=== PATIENT | female | born 1970 | race Caucasian/White ===

== ENCOUNTER 2020-03-16 10:12 | Outpatient (CLI) | payer OTHER, SELFPAY ==
--- NOTE | ~2020-03-16 | US_ITS ---
EXAMINATION: US pelvic complete w TV EXAM DATE: 03/16/2020 11:15 INDICATION: Irregular bleeding. Check IUD. TECHNIQUE: Pelvic transabdominal and transvaginal sonogram was performed. There are multiple graysca le and Doppler images available for interpretation. There is no prior study for comparison. FINDINGS: Uterus measures 7.6 x 3.9 x 3.5 cm, with IUD centrally located inside the endometrial cavi ty. Endometrial stripe measures 3 mm, within normal limits. There is no free pelvic fluid. Right adnexa: The ovary measures 9.8 x 8.3 x 5.1 cm, with large cystic region measuring up to 8.3 cm, some faint echogenic foci inside the fluid. No evidence of intramural nodule or focal wall thickenin g, more likely benign histology. Ovarian vascular flow confirmed. Left adnexa: The ovary measures 4.5 x 2.7 x 4.1 cm and is morphologically normal. Ovarian vascular fl ow confirmed. IMPRESSION: 1. Large cystic right ovarian lesion, could be hemorrhagic cyst, endometrioma, cystic ovarian neoplas m. 2. IUD in position. Reviewed, dictated and finalized at location A. IMPRESSION: 1. Large cystic right ovarian lesion, could be hemorrhagic cyst, endometrioma, cystic ovarian neoplasm. 2. IUD in position.
[2020-03-16 11:03] LABS: Thyroid Stimulating Hormone 1.54 uIU/mL (0.36-3.74)
[2020-03-18 17:28] LABS: T4 Thyroxine 9.2 mcg/dL (5.1-11.9)
[2020-03-20 09:28] LABS: FSH 7.2 mIU/mL (***); LH 2.5 mIU/mL (***); Progesterone 0.9 ng/mL (***)
== END 2020-03-16 10:13 | disposition home or self-care (01) ==
PROVIDERS: PCP Family Medicine; Visit Provider Obstetrics & Gynecology
DX: N92.6 Irregular menstruation, unspecified (principal)
CPT/HCPCS: 36415; 76830; 76856; 83001; 83002; 84144; 84436; 84443

== ENCOUNTER → 2020-04-28 08:31 | Outpatient (CLI) | payer OTHER, SELFPAY ==
--- NOTE | ~2020-04-28 | US_ITS ---
EXAMINATION: US pelvic complete w TV DATE: 04/28/2020 10:00 INDICATION: Pelvic pain. Ovarian cyst. Comparison:03/16/2020 TECHNIQUE: Multiple transabdominal and endovaginal sonographic images of the pelvis performed. FINDINGS: The uterus measures 7.7 x 3.2 x 4.6 cm. The endometrial complex measures 3 mm. IUD present in the endometrium. The right ovary measures 9.5 x 5.8 x 7.3 cm and the left ovary measures 3.4 x 2.6 x 3.1 cm. There is a persistent large right ovarian cyst measuring 8.3 x 5.4 x 6.2 cm with low level internal echoes. Th e left ovary contains a 2.4 cm cyst. There is no free fluid in the pelvis. There are no abnormal masses seen on either side. IMPRESSION: 1. Persistent 8.3 cm right ovarian cyst. Differential diagnosis includes large functional cyst, cysta denoma and cystadenocarcinoma. 2: 2.4 cm left ovarian cyst. Reviewed, dictated and finalized at location A. IMPRESSION: 1. Persistent 8.3 cm right ovarian cyst. Differential diagnosis includes large functional cyst, cystadenoma and cystadenocarcinoma. 2: 2.4 cm left ovarian cyst.
== END ==
PROVIDERS: Visit Provider Obstetrics & Gynecology
DX: N83.202 Unspecified ovarian cyst, left side (principal); N83.201 Unspecified ovarian cyst, right side
CPT/HCPCS: 76830; 76856

== ENCOUNTER 2020-05-09 02:32 | Outpatient (CLI) | payer OTHER, SELFPAY ==
[2020-05-09 16:34] LABS: SARS-CoV-2 RNA PCR Negative
== END 2020-05-09 02:33 | disposition home or self-care (01) ==
LOC: ANHCOVIDDT 02:32
PROVIDERS: Visit Provider Obstetrics & Gynecology
DX: Z01.812 Encounter for preprocedural laboratory examination (principal); Z11.59 Encounter for screening for other viral diseases
CPT/HCPCS: 87635; C9803; U0003

== ENCOUNTER 2020-05-11 00:35 | Day surgery (SDC) | payer OTHER, SELFPAY ==
[2020-05-04 11:54] VITALS: BMI 29.8
[2020-05-11] VITALS (10 sets, daily range): BP systolic 120–150; BP diastolic 70–95; PULSE 58–80; RESP 12–20; TEMP 36–36.6; O2SAT 99–100
--- NOTE | 2020-05-11 06:47 | PM.IMHP ---
H&P: HPI History of Present Illness Date/Time: 05/11/20 06:47 Chief complaint: ovarian cyst Narrative: Analy Cruz is a 50 year old female presented in February with irregular bleeding. On exam an adnexal fullness was palpated on the right. Ultrasound showed an 8cm right ovarian cyst. She had a normal Ca125. She did not have pain at that time. She opted for trial of control pills and reevaluate. She had a follow up ultrasound approximately six weeks later and no change in cyst. She has started having a right lowre quadrant sharpness intermittent and sometimes achy. She was recommended for removal of cyst by laparoscopy since no change with ovarian suppression and she is having discomfort now. Also discussed with her option of removal of both fallopian tubes as a sterilization procedure that can decrease her risk of ovarian cancer. She was informed that the tubal interruption as a sterilization technique did not show same benefit as bilateral salpingectomy for possible decrease risk of ovarian cancer. She was undecided regarding salpingectomy at her preop and told me today that she desired the salpingectomy.She has satisifed parity. Review of Systems Review of Systems: All systems reviewed & are unremarkable except as noted in HPI and below Cardiovascular: Cardiovascular: Reports no additional cardiovascular complaints, Denies chest pain and Denies dyspnea Respiratory: Respiratory: Reports no additional respiratory complaints and Denies dyspnea Gastrointestinal: Gastrointestinal: Reports abdominal pain, Denies change in bowel habits, Denies diarrhea, Denies nausea and Denies vomiting Genitourinary: Genitourinary: Reports pelvic pain Integumentary/Breasts: Skin/Breast: Reports system reviewed and no additional complaints, except as docu Neurologic: Reports system reviewed and no additional complaints, except as documented [facility] Past Medical History Medical History (Updated 05/11/20 @ 07:37 by Kurt Rizvi MD) Hx of migraines Irregular heart beat Surgical History Surgical History History of delivery History of knee surgery Family History Family History Father Hypertension Grandparent Heart attack Other Carcinoma of colon Social History Social History Years smoked: 15 Smoking status: Current some day smoker Tobacco type: cigarettes Alcohol intake: current Drinks per week: 10 Spiritual care concerns: No Meds Home Medications and Allergies Home Medications Medication Instructions Recorded Confirmed Type flecainide 50 mg tablet 75 mg PO Q12H 03/16/20 05/11/20 History drospirenone (contraceptive) 4 mg 4 mg PO DAILY 90 Days #90 day 03/22/20 05/11/20 Rx (28) tablet ibuprofen 600 mg PO QID PRN 05/04/20 05/11/20 History levonorgestrel [Mirena] 1 device INTRAUTERINE ONCE 05/04/20 05/11/20 History Allergies Allergy/AdvReac Type Severity Reaction Status Date / Time codeine Allergy Unknown Rash Verified 05/11/20 06:42 hydrocodone AdvReac Nausea Verified 05/11/20 06:42 morphine AdvReac SEVERE Verified 05/11/20 06:42 VOMITING Exam Const: Orientation/consciousness: oriented to person and oriented to place HENMT: Head: normal to inspection Eyes: General: appearance normal, both eyes and all related structures Resp: Effort & Inspection: normal respiratory effort Auscultation: clear to auscultation bilaterally Cardio: Rate: regular rate Rhythm: regular rhythm GI: Inspection: normal to inspection GI Palp: No Rebound tenderness present : External Female Exam: normal external appearance Speculum Exam - Vagina: normal appearance of the vagina Speculum Exam - Cervix: normal appearance of the cervix and Other cervical findings present (IUD string present) Bimanual exam- vagina & uterus:
[2020-05-11] MEDS: LACTATED RINGERS 1,000 ML 30 ML IV CONT ×2 (06:49→09:14)
[2020-05-11] MEDS: KETOROLAC 15 MG/ML VIAL (*BKC) IV PUSH (06:50)
[2020-05-11] MEDS: ACETAMINOPHEN 500 MG TABLET 1000 MG PO (06:50)
--- NOTE | 2020-05-11 07:00 | WPDANESEPPF ---
Anes - Initial Pre Proc Eval Procedure: Operation Date: 05/11/20 07:30 Proposed Procedures p Laparoscopic Right Ovarian Cystectomy, Possible Right Oophorectomy - Kurt Rizvi MD Date/Time: 05/11/20 07:00 Surgeon: Kurt Rizvi MD Pre Op Diagnosis: ovarian cyst Patient Data Age: 50 Gender: F Height: 5 ft 6 in Weight: 83.91 kg Allergies Allergy/AdvReac Type Severity Reaction Status Date / Time codeine Allergy Unknown Rash Verified 05/11/20 06:42 hydrocodone AdvReac Nausea Verified 05/11/20 06:42 morphine AdvReac SEVERE Verified 05/11/20 06:42 VOMITING Home Medications Medication Instructions Recorded Confirmed Type flecainide 50 mg tablet 75 mg PO Q12H 03/16/20 05/11/20 History drospirenone (contraceptive) 4 mg 4 mg PO DAILY 90 Days #90 day 03/22/20 05/11/20 Rx (28) tablet ibuprofen 600 mg PO QID PRN 05/04/20 05/11/20 History levonorgestrel [Mirena] 1 device INTRAUTERINE ONCE 05/04/20 05/11/20 History Patient hx anesthesia problems: other (motion sickness) Family hx anesthesia problems: none PMFSH Past Medical History Medical History (Updated 05/11/20 @ 07:00 by Soham Mena MD) Hx of migraines Irregular heart beat Surgical History Surgical History History of delivery History of knee surgery Family History Family History Father Hypertension Grandparent Heart attack Other Carcinoma of colon Social History Social History Years smoked: 15 Smoking status: Current some day smoker Tobacco type: cigarettes Alcohol intake: current Drinks per week: 10 Spiritual care concerns: No Anes - Eval Final PreProcedure Day of Procedure 05/11/20 07:00 Patient weight: overweight Heart: regular rate and rhythm Lungs: decreased breath sounds Airway: Mallampati scale class II Neurological: alert and oriented Last oral intake: >/= 8 hours ASA classification: III Emergent: no Anesthetic plan: proceed Anesthesia type and monitoring: general ETT and standard monitoring Informed Consent: The patient's anesthetic plan and its attendant risks and benefits were discussed with the patient/family/POA. Questions were solicited and answers provided to the satisfaction of the patient/family/POA.
--- NOTE | 2020-05-11 07:39 | WPDHPUPDATE1 ---
History and Physical Update Update Date/Time: 05/11/20 07:39 History and Physical has been reviewed, including an updated exam of the patient. There are NO changes in the patient's condition. Risks, benefits, and alternatives have been discussed and questions answered. Patient agrees to proceed with procedure.
--- NOTE | 2020-05-11 09:01 | PM.PROC ---
Procedure Note - Detailed Date of procedure: 05/12/20 Pre-op diagnosis: ovarian cyst Undesired fertility satisfied parity Procedure performed: 1. Laparoscopic right cystectomy with right oophorectomy 2. Bilateral salpingectomy 3. Lysis of adhesions Description of procedure: After informed consent was obtained. Patient was taken to OR. General endotracheal anesthesia was performed. She was prepped and draped in sterile fashion. The bladder was drained with straight catheter while prepping. 200cc of urine drained. Attention was turned to vagina. Speculum inserted. Single tooth tenaculum placed on anterior lip of cervix. A small uterine manipulator was placed in cervical canal. Attention was then turned to abdomen with sterile gloves. A vertical incision was made near umbilical fold. A Veress needle was inserted. Confirmation into the abdomen obtained with normal flow of sterile saline and normal peritoneal pressures. A pneumoperitoneum of 15mmHg was obtained. A 5mm port was inserted under laparoscopic visualization. She was placed in Trendelenburg position. A second 5 mm port inserted on the right and a right port 10mm inserted under laparoscopic visualization. Large band of omental adhesions was lysed with scissors and cautery to obtain better visualization of pelvic floor. Hemostasis noted. Another 5mm port needed to be inserted in the lower mid abdomen. A needle with suction was placed into the right ovarian cyst after the cyst was lifted from the pelvis and placed in the endocatch bag. It could fit longterm in. The needle suction was placed and the cyst was decompressed. After if was mostly decompress the cyst was evaluated and no normal ovarian tissue identified. The fallopian tube was then cauterized from the broad ligament and the ovarian ligament was cauterized and the ovary and tube were placed in the endocath bag. The enclosed specimen could not fit through the port site. The incision was extended and the specimen was grasped with clamp and removed partially from the bag. More fluid was expressed, in the bag from the cyst and the bag and the rest of the specimen was removed through the port. The 10mm port was reinserted under laparoscopic visualization. Attention was turned to the left fallopian tube and their was a small cyst on the left ovary which the fluid was drained and it was fully decompressed and hemostatic. There was normal ovarian tissue identified. The left fallopian tube that was free was excised with ligature from the broad ligament. The proximal tube was densely adhere to the left pelvic sidewall and this was not removed. A Dax Thomasen was inserted into the 10mm port site and the fascia was approximated well. Hemostasis in pelvis was noted. The incisions were closed with 4.o vicryl in subcutaneous fashion and dermabond. Marcaine was injected at incision site before each incision was made and at closing, a total of 10cc. The manipulator removed. IUD string seen. Patient tolerated procedure well and was taken to recovery room. Sponge count correct. Anesthesia: GETA Surgeon: Kurt Rizvi MD Estimated blood loss (mL): 5 IV fluids (mL): 1,400 Urine output (mL): 200 Drains: No Packing: No Pathology: yes (1. right ovary with cyst 2. right cyst fluid 3. Right and left fallopian tube) Complications: No immediate complications Condition: stable Disposition: PACU Findings: Large right ovarian cyst consisting of all of the ovary. No normal ovarian tissue seen. Small left ovarian cyst. Cyst fluid removed from left ovary. Normal fallopian tubes bilaterally. Adhesions of omental fat to anterior abdominal wall. The adhesions were lysed to obtain visualization of pelvis. adhesions of bladder and left proximal fallopian tube and broad ligament to pelvis.
--- NOTE | 2020-05-11 09:36 | SUR.PHASEI ---
0935; PT AROUSES EASILY. DENIES PAIN OR NAUSEA AT THIS TIME. C/O SORE THROAT. HOB ELEVATED 20 DEGREES.
[2020-05-11] MEDS: fentaNYL CITRATE INJ (*CRX) 100 MCG/2 ML VIAL 25 MCG IV PUSH ×4 (09:54→10:18)
== END 2020-05-11 11:55 | disposition home or self-care (01) ==
PROVIDERS: PCP Family Medicine; Visit Provider Obstetrics & Gynecology
PROC: (CPT 49320; principal; 2020-05-11 07:30)
DX: D27.0 Benign neoplasm of right ovary (principal); N83.8 Other noninflammatory disorders of ovary, fallopian tube and broad ligament; Z30.2 Encounter for sterilization; I47.2 Ventricular tachycardia; F17.210 Nicotine dependence, cigarettes, uncomplicated
CPT/HCPCS: 58661; 88104; 88108; 88302; 88305; 88307; A9270; J0330; J1100; J1885; J2250; J2405; J2704; J2710; J3010; J7030; J7120

== ENCOUNTER 2020-07-28 17:26 | Outpatient (CLI) | payer OTHER, SELFPAY ==
--- NOTE | ~2020-07-28 | MM_ITS ---
EXAMINATION: MM screening [facility] BI w hany HISTORY: Screening TECHNIQUE: Craniocaudal and mediolateral oblique 3-D tomosynthesis images were obtained and synthetic 2-D images were generated. CAD analysis was submitted and interpreted. COMPARISON: Comparison to multiple prior studies sequentially, with oldest reviewed study dated 10/08. BREAST PARENCHYMAL COMPOSITION: There are scattered areas of fibroglandular density. FINDINGS: There is no evidence of suspicious mass, calcification, or architectural distortion to sugg est malignancy in either breast. There has been no suspicious interval change. IMPRESSION: 1. No mammographic evidence of malignancy. 2. Recommend routine screening mammography in one year. BI-RADS Category 1: Negative Reviewed, dictated and finalized at location A. REP
== END 2020-07-28 17:27 | disposition home or self-care (01) ==
LOC: ANHIMG 17:30
PROVIDERS: PCP Family Medicine; Visit Provider Obstetrics & Gynecology
DX: Z12.31 Encounter for screening mammogram for malignant neoplasm of breast (principal)
CPT/HCPCS: 77063; 77067

== ENCOUNTER 2020-08-21 08:02 | Outpatient (CLI) | payer OTHER, SELFPAY ==
--- NOTE | ~2020-08-21 | US_ITS ---
EXAMINATION: US pelvic complete w TV DATE: 08/21/2020 09:36 INDICATION: Right oophorectomy. Irregular menstruation. Comparison:Ultrasound dated 04/28/2010 TECHNIQUE: Multiple transabdominal and endovaginal sonographic images of the pelvis performed. FINDINGS: The uterus measures 8 x 3.8 x 4.6 cm. IUD is present in the fundus. The endometrial complex measures 4.6 mm. The right ovary is surgically absent. There is a 2.2 cm left ovarian cyst. There are small follicles in each ovary. There is no free fluid in the pelvis. There are no abnormal masses seen on either side. IMPRESSION: 1. 2.2 cm left ovarian cyst. Reviewed, dictated and finalized at location A. ECT MANAGEMENT IT SPECIALIST
== END 2020-08-21 08:03 | disposition home or self-care (01) ==
PROVIDERS: PCP Family Medicine; Visit Provider Obstetrics & Gynecology
DX: N83.202 Unspecified ovarian cyst, left side (principal); Z97.5 Presence of (intrauterine) contraceptive device
CPT/HCPCS: 76830; 76856

== ENCOUNTER → 2020-10-06 08:43 | Outpatient (CLI) | payer OTHER, SELFPAY ==
[2020-10-06 20:13] LABS: SARS-CoV-2 RNA PCR Negative
== END ==
PROVIDERS: PCP Family Medicine; Visit Provider Family Medicine
DX: R51.9 Headache, unspecified (principal); Z20.822 Contact with and (suspected) exposure to COVID-19
CPT/HCPCS: C9803; U0003; U0005

== ENCOUNTER 2020-10-26 10:07 | Outpatient (CLI) | payer OTHER, SELFPAY ==
--- NOTE | 2020-10-26 | ECG_ITS ---
Measurements Intervals [place] Rate: 81 P: 17 NV: 155 QRS: -7 QRSD: 95 T: 32 QT: 378 QTc: 440 Interpretive Statements SINUS RHYTHM INCOMPLETE RIGHT BUNDLE BRANCH BLOCK BORDERLINE ECG Electronically Signed On 10-26-2020 11:36:59 COMMUNITY OUTREACH ADVOCATE by Shemar Suh D.O.
== END 2020-10-26 10:08 | disposition home or self-care (01) ==
PROVIDERS: PCP Family Medicine
DX: I47.2 Ventricular tachycardia (principal); I45.10 Unspecified right bundle-branch block
CPT/HCPCS: 93005

== ENCOUNTER 2021-06-22 12:11 | Outpatient (CLI) | payer OTHER, SELFPAY ==
[2021-06-22 13:18] LABS: T4 Thyroxine 8.34 ug/dL (5.53-11.0)
[2021-06-25 07:28] LABS: FSH 20.4 mIU/mL (***); Progesterone 0.4 ng/mL (***)
== END 2021-06-22 12:12 | disposition home or self-care (01) ==
LOC: ANHLAB 12:14
PROVIDERS: PCP Family Medicine; Visit Provider Obstetrics & Gynecology
DX: N92.6 Irregular menstruation, unspecified (principal)
CPT/HCPCS: 36415; 83001; 84144; 84436; 84443

== ENCOUNTER → 2021-06-28 13:04 | Outpatient (CLI) | payer OTHER, SELFPAY ==
--- NOTE | ~2021-06-28 | US_ITS ---
EXAMINATION: US pelvic complete w TV DATE: 06/28/2021 13:34 INDICATION: Irregular menstruation Comparison:No prior studies for comparison. TECHNIQUE: Multiple transabdominal and endovaginal sonographic images of the pelvis performed. FINDINGS: The uterus measures 8.2 x 3.7 x 4.3 cm. There is an IUD in the endometrium. The endometrial complex measures 5 mm. The right ovary is surgically absent. The left ovary contains a 3.4 cm cyst and measures 5.8 x 2.8 x 4 cm. There is no free fluid in the pelvis. There are no abnormal masses seen on either side. IMPRESSION: 1. Left ovarian cyst measuring 3.4 cm maximum dimension. Reviewed, dictated and finalized at location A. T MANAGEMENT ANALYST
== END ==
PROVIDERS: Visit Provider Obstetrics & Gynecology
DX: N92.6 Irregular menstruation, unspecified (principal); N83.202 Unspecified ovarian cyst, left side
CPT/HCPCS: 76830; 76856

== ENCOUNTER 2021-09-11 00:49 | Day surgery (SDC) | payer OTHER, SELFPAY ==
[2021-08-30 11:58] VITALS: BMI 25.9
[2021-09-11 08:00] VITALS: BP 128/88; PULSE 71; RESP 16; TEMP 36.3; O2SAT 99; BMI 26.2
--- NOTE | 2021-09-11 08:14 | WPDANESEPPF ---
Anes - Initial Pre Proc Eval Procedure: Operation Date: 09/11/21 09:00 Proposed Procedures p Screening Colonoscopy - Donal Estrella MD Date/Time: 09/11/21 08:14 Surgeon: Donal Estrella MD Pre Op Diagnosis: neoplasm screening Patient Data Age: 51 Gender: F Height: 1.68 m Weight: 73 kg Allergies Allergy/AdvReac Type Severity Reaction Status Date / Time codeine Allergy Unknown Rash Verified 09/11/21 08:10 hydrocodone AdvReac Nausea Verified 09/11/21 08:10 morphine AdvReac SEVERE Verified 09/11/21 08:10 VOMITING Home Medications Medication Instructions Recorded Confirmed Type ibuprofen 600 mg PO QID PRN 05/04/20 09/11/21 History levonorgestrel [Mirena] 1 device INTRAUTERINE ONCE 05/04/20 09/11/21 History ergocalciferol (vitamin D2) 1,250 mcg PO WEEKLY 08/30/21 09/11/21 History flecainide 150 mg PO Q12H 08/30/21 09/11/21 History Patient hx anesthesia problems: none Family hx anesthesia problems: none Results Review: All pre-operative results and documents have been reviewed as part of the pre-operative evaluation. [facility] Past Medical History Medical History (Updated 09/11/21 @ 08:14 by Freddy Moffett MD) Hx of migraines Irregular heart beat Overweight Surgical History Surgical History History of bilateral salpingectomy History of delivery History of knee surgery History of oophorectomy Family History Family History Father Hypertension Grandparent Heart attack Other Carcinoma of colon Social History Social History Years smoked: 15 Smoking status: Current every day smoker Tobacco type: cigarettes Alcohol intake: current Drinks per week: 10 Alcohol use details: 2-3 drinks per month Living arrangements: with family Spiritual care concerns: No Anes - Eval Final PreProcedure Day of Procedure 09/11/21 08:14 Patient weight: overweight Heart: regular rate and rhythm Lungs: clear to auscultation Airway: Mallampati scale class II Neurological: alert and oriented Last oral intake: >/= 8 hours ASA classification: III Emergent: no Anesthetic plan: proceed Anesthesia type and monitoring: general GIVS and standard monitoring Results Review: All pre-operative results and documents have been reviewed as part of the pre-operative evaluation. Informed Consent: The patient's anesthetic plan and its attendant risks and benefits were discussed with the patient/family/POA. Questions were solicited and answers provided to the satisfaction of the patient/family/POA.
[2021-09-11] MEDS: LACTATED RINGERS 1,000 ML 150 ML IV CONT (08:22)
--- NOTE | 2021-09-11 08:35 | PM.HPGS ---
History of Present Illness History of Present Illness Consent: Risks, benefits, and alternatives have been discussed and questions answered. Patient agrees to proceed with procedure. Chief complaint: neoplasm screening Narrative: Analy Cruz is a 51 year old female here for first screening colonoscopy Review of Systems Constitutional: Constitutional: Denies headache(s) and Denies weakness Eyes: Eyes: Denies blurry vision ENT: Reports Normal hearing present, Denies headache(s) and Denies neck pain Cardiovascular: Cardiovascular: Denies chest pain and Denies dyspnea Respiratory: Respiratory: Denies dyspnea Gastrointestinal: Gastrointestinal: Reports no additional gastrointestinal complaints Genitourinary: Genitourinary: Denies dysuria Musculoskeletal: Musculoskeletal: Denies neck pain Integumentary/Breasts: Skin/Breast: Denies dry skin Neurologic: Reports Normal hearing present, Denies headache(s) and Denies weakness Psychiatric: Psychiatric: Denies anxiety Endocrine: Endocrine: Denies change in body appearance Hematologic/Lymphatic: Hematologic/Lymphatic: Denies easy bleeding Allergic/Immunologic: Allergic/Immunologic: Denies urticaria PMFSH Past Medical History Medical History (Updated 09/11/21 @ 08:36 by Donal Estrella MD) Colon cancer screening Hx of migraines Irregular heart beat Overweight Surgical History Surgical History History of bilateral salpingectomy History of delivery History of knee surgery History of oophorectomy Family History Family History Father Hypertension Grandparent Heart attack Other Carcinoma of colon Social History Social History Years smoked: 15 Smoking status: Current every day smoker Tobacco type: cigarettes Alcohol intake: current Drinks per week: 10 Alcohol use details: 2-3 drinks per month Living arrangements: with family Spiritual care concerns: No Meds Home Medications and Allergies Home Medications Medication Instructions Recorded Confirmed Type ibuprofen 600 mg PO QID PRN 05/04/20 09/11/21 History levonorgestrel [Mirena] 1 device INTRAUTERINE ONCE 05/04/20 09/11/21 History ergocalciferol (vitamin D2) 1,250 mcg PO WEEKLY 08/30/21 09/11/21 History flecainide 150 mg PO Q12H 08/30/21 09/11/21 History Allergies Allergy/AdvReac Type Severity Reaction Status Date / Time codeine Allergy Unknown Rash Verified 09/11/21 08:10 hydrocodone AdvReac Nausea Verified 09/11/21 08:10 morphine AdvReac SEVERE Verified 09/11/21 08:10 VOMITING Vital Signs Vital Signs - 24 hr 09/11/21 08:00 Temperature 97.4 F L Pulse Rate 71 Respiratory Rate 16 Blood Pressure 128/88 Pulse Oximetry 99 Exam Const: General: comfortable and no acute distress HENMT: General nose exam: Normal nares present Eyes: General: appearance normal, both eyes and all related structures Neck: Neck: no JVD Resp: Auscultation: clear to auscultation bilaterally Cardio: Rate: regular rate Rhythm: regular rhythm GI: Inspection: non-distended GI Palp: Yes Soft to palpation Skin: General skin exam: normal color Neuro: General: gait normal Speech: normal speech Extrem: General: normal to inspection Psych: Mental Status: mental status grossly normal Assessment and Plan Assessment and plan (1) Colon cancer screening: Code(s): Z12.11 - Encounter for screening for malignant neoplasm of colon Status: Acute Assessment and Plan: colonoscopy
[2021-09-11 08:56] VITALS: BP 117/85; PULSE 65; RESP 22; O2SAT 100
[2021-09-11 09:06] VITALS: BP 138/83; PULSE 66; RESP 24; O2SAT 100
[2021-09-11 09:16] VITALS: BP 132/78; PULSE 68; RESP 20; O2SAT 100
== END 2021-09-11 09:36 | disposition home or self-care (01) ==
PROVIDERS: PCP Family Medicine; Visit Provider Internal Medicine Gastroenterology
PROC: 0DJD8ZZ Inspection of Lower Intestinal Tract, Via Natural or Artificial Opening Endoscopic (ICD-10-PCS; CPT 45378; principal; 2021-09-11 09:00)
DX: Z12.11 Encounter for screening for malignant neoplasm of colon (principal); K64.8 Other hemorrhoids; Z87.891 Personal history of nicotine dependence
CPT/HCPCS: 45378; J2704; J7120

== ENCOUNTER 2021-09-13 16:20 | Outpatient (CLI) | payer OTHER, SELFPAY ==
--- NOTE | ~2021-09-13 | MM_ITS ---
EXAMINATION: MM screening [facility] BI w hany HISTORY: Screening mammogram TECHNIQUE: Craniocaudal and mediolateral oblique 3-D tomosynthesis images were obtained and synthetic 2-D images were generated. CAD analysis was submitted and interpreted. COMPARISON: 07/28/2020, 04/22/2019, 09/05/2017 BREAST PARENCHYMAL COMPOSITION: There are scattered areas of fibroglandular density. FINDINGS: There is no evidence of suspicious mass, calcification, or architectural distortion to sugg est malignancy in either breast. There has been no suspicious interval change. IMPRESSION: 1. No mammographic evidence of malignancy. 2. Recommend routine screening mammography in one year. BI-RADS Category 1: Negative Reviewed, dictated and finalized at location A. VERY RN
== END 2021-09-13 16:21 | disposition home or self-care (01) ==
LOC: ANHIMG 16:21
PROVIDERS: PCP Family Medicine; Visit Provider Obstetrics & Gynecology
DX: Z12.31 Encounter for screening mammogram for malignant neoplasm of breast (principal)
CPT/HCPCS: 77063; 77067

== ENCOUNTER 2022-08-09 08:32 | Outpatient (CLI) | payer OTHER, SELFPAY ==
[2022-08-14 20:28] LABS: FSH 33.5 mIU/mL (***); LH 43.6 mIU/mL (***); Progesterone 0.7 ng/mL (***)
== END 2022-08-09 08:33 | disposition home or self-care (01) ==
PROVIDERS: PCP Family Medicine; Visit Provider Obstetrics & Gynecology
DX: N92.6 Irregular menstruation, unspecified (principal)
CPT/HCPCS: 36415; 83001; 83002; 84144; 84436; 84443

== ENCOUNTER 2022-08-15 10:47 | Outpatient (CLI) | payer OTHER, SELFPAY ==
--- NOTE | ~2022-08-15 | US_ITS ---
Pelvic ultrasound. Clinical History: Intrauterine device Technique: Realtime transabdominal and transvaginal scanning of the pelvis was performed. Color flow Doppler and Doppler spectral analysis were performed. Findings: The uterus is anteverted. The endometrial stripe has a thickness of 2-3 mm. IUD in satisfa ctory position. No focal mass is identified. The right ovary is not visualized. No significant right ovarian or adnexal mass is seen. The left ovary measures 4.6 x 2.2 x 2.0 cm. Mildly complex left ovarian cyst measures 3 cm in maximum diameter. There is no evidence of free fluid in the cul de sac. Impression: IUD in satisfactory position. 3 cm mildly complex ovarian cyst. Consider follow-up ultrasound in 6-8 weeks to reassess. Reviewed, dictated and finalized at [facility]. ET SALES SUPERVISOR Impression: IUD in satisfactory position. 3 cm mildly complex ovarian cyst. Consider follow-up ultrasound in 6-8 weeks to reassess.
== END 2022-08-15 10:48 | disposition home or self-care (01) ==
PROVIDERS: PCP Family Medicine; Visit Provider Obstetrics & Gynecology
DX: Z30.431 Encounter for routine checking of intrauterine contraceptive device (principal); N83.202 Unspecified ovarian cyst, left side
CPT/HCPCS: 76830; 76856

== ENCOUNTER 2022-10-03 15:22 | Outpatient (CLI) | payer OTHER, SELFPAY ==
--- NOTE | ~2022-10-03 | US_ITS ---
EXAMINATION: US pelvic complete w TV DATE: 10/03/2022 16:03 INDICATION: Left ovarian cyst. TECHNIQUE: Multiple transabdominal and transvaginal sonographic images of the pelvis were obtained. COMPARISON: Ultrasound 08/15/2022 FINDINGS: TRANSABDOMINAL ULTRASOUND: The uterus measures 6.7 x 4.5 x 3.2 cm. There is no free fluid in the pelvis. TRANSVAGINAL ULTRASOUND: The endometrial complex measures 2 mm in thickness. There is an intrauterine device in expected posit ion. There are nabothian cysts in the cervix. The right ovary is not visualized and reportedly absent . The left ovary measures 2.5 x 1.2 x 2.0 cm. There is normal vascular flow in left ovary. IMPRESSION: 1. Normal left ovary. Right ovary reportedly absent. 2. Intrauterine device in expected position. Reviewed, dictated and finalized at location A. E MAKER
== END 2022-10-03 15:23 | disposition home or self-care (01) ==
LOC: ANHIMG 15:25
PROVIDERS: PCP Family Medicine; Visit Provider Obstetrics & Gynecology
DX: N83.209 Unspecified ovarian cyst, unspecified side (principal); Z97.5 Presence of (intrauterine) contraceptive device
CPT/HCPCS: 76830; 76856

== ENCOUNTER 2022-10-12 09:33 | Outpatient (CLI) | payer OTHER, SELFPAY ==
--- NOTE | ~2022-10-12 | US_ITS ---
EXAMINATION: US venous doppler LE RT DATE: 10/12/2022 10:12 INDICATION: Right lower limb pain. Varicose veins. TECHNIQUE: Grayscale ultrasound images without and with compression and Doppler ultrasound images of the right lower extremity veins were obtained. COMPARISON: None. FINDINGS: The visualized portions of right common femoral vein, profunda (deep) femoral vein, femoral vein, pop liteal vein, peroneal trunk, posterior tibial veins, peroneal veins, gastrocnemius vein and greater s aphenous vein outflow are patent. IMPRESSION: 1. No deep venous thrombosis in the right lower limb. Reviewed, dictated and finalized at location A. IGHT EDGER
== END 2022-10-12 09:34 | disposition home or self-care (01) ==
LOC: ANHIMG 09:34
PROVIDERS: PCP Family Medicine; Visit Provider Family Medicine
DX: M79.661 Pain in right lower leg (principal)
CPT/HCPCS: 93971

== ENCOUNTER 2022-10-22 09:21 | Outpatient (CLI) | payer OTHER, SELFPAY ==
--- NOTE | ~2022-10-22 | XR_ITS ---
EXAMINATION: XR_KNEE1-2VRT_CR DATE: 10/22/2022 10:53 INDICATION: Multiple joint pain TECHNIQUE: AP and lateral views of the right knee were obtained. COMPARISON: None. FINDINGS: Alignment is normal. No fracture. Subarticular cystic change suggesting overlying high-grade chondrom alacia at the cephalad aspect of the patellar apical ridge. Joint spaces appear normal and the medial and lateral compartments. Soft tissues are unremarkable with no right knee joint effusion. IMPRESSION: 1. 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 Reviewed, dictated and finalized at location A. SSING MACHINE OPERATOR IMPRESSION: 1. Mild patellofemoral osteoarthritis with subarticular cystic change suggestin g high-grade chondromalacia at the patellar apical ridge.
--- NOTE | ~2022-10-22 | XR_ITS ---
EXAMINATION: XR hand RT 2V, XR wrist LT 2V, XR hand LT 2V, XR wrist RT 2V DATE: 10/22/2022 10:52 INDICATION: Multiple joint pain TECHNIQUE: 1. Posteroanterior and lateral views of the left wrist were obtained. 2. Dorsal palmar and lateral views of the left hand were obtained. 3. Posteroanterior and lateral views of the right wrist were obtained. 4. Dorsal palmar and lateral views of the right hand were obtained. COMPARISON: None. FINDINGS: No fractures at either hand or wrist. Normal alignment at the left hand and wrist. There is widening of the right scapholunate interval with increased scapholunate angle consistent with scapholunate lig ament tear and secondary dorsal intercalated segment instability (DISI). 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 Additional more typical symmetric pattern of minimal to mild polyarticu lar osteoarthritis at the bilateral radiocarpal, triscaphe, first carpometacarpal and multiple metaca rpophalangeal and interphalangeal joints characterized by nonuniform joint space narrowing and/or tin y marginal osteophytes. No erosions to suggest inflammatory arthritis. There is mild periarticular os teoarthritis about the first interphalangeal and multiple bilateral proximal interphalangeal joints. Additional mild soft tissue swelling overlying the ulnar styloid processes. IMPRESSION: 1. 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 2. Additional relatively symmetric typical pattern of minimal to mild polyarticular osteoarthritis at the bilateral hands and wrists. No erosions to suggest inflammatory arthritis. Reviewed, dictated and finalized at location A. DOWN SPECIALIST IMPRESSION: 1. 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 2. Additional relatively symmetric typical pattern of minimal to mild polyartic ular osteoarthritis at the bilateral hands and wrists. No erosions to suggest i nflammatory arthritis. IMPRESSION: 1. 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 2. Additional relatively symmetric typical pattern of minimal to mild polyartic ular osteoarthritis at the bilateral hands and wrists. No erosions to suggest i nflammatory arthritis. IMPRESSION: 1. 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 2. Additional relatively symmetric typical pattern of minimal to mild polyartic ular osteoarthritis at the bilateral hands and wrists. No erosions to suggest i nflammatory arthritis.
--- NOTE | ~2022-10-22 | XR_ITS ---
EXAMINATION: XR shoulder LT min 2V, XR shoulder RT min 2V DATE: 10/22/2022 10:53 INDICATION: Multiple joint pain TECHNIQUE: 1. AP internally and AP oblique externally rotated views of the right shoulder were obtained. 2. AP internally and AP oblique externally rotated views of the left shoulder were obtained. COMPARISON: None FINDINGS: Normal alignment at both shoulders. No fracture. Glenohumeral joint spaces are normal. Relatively sy mmetric mild bilateral acromioclavicular osteoarthritis. Calcified nodule left upper lung zone and ca lcified left hilar and mediastinal lymph nodes consistent with old granulomatous disease. Soft tissue s are unremarkable. IMPRESSION: Mild bilateral acromioclavicular osteoarthritis. Reviewed, dictated and finalized at location A. ICAL PATHOLOGIST IMPRESSION: Mild bilateral acromioclavicular osteoarthritis.
--- NOTE | ~2022-10-22 | XR_ITS ---
EXAMINATION: XR elbow RT 2V DATE: 10/22/2022 10:53 INDICATION: Multiple joint pain TECHNIQUE: Anteroposterior and lateral views of the right elbow were obtained. COMPARISON: None. FINDINGS: Alignment is normal. No fracture or joint effusion. Mild osteoarthritis most prominent at the ulnotro chlear articulation. Soft tissues are unremarkable. IMPRESSION: 1. Mild osteoarthritis at the right elbow. Reviewed, dictated and finalized at location A. STRIPPER FINAL
--- NOTE | ~2022-10-22 | XR_ITS ---
EXAMINATION: XR elbow LT 2V DATE: 10/22/2022 10:53 INDICATION: Multiple joint pain TECHNIQUE: Anteroposterior and lateral views of the left elbow were obtained. COMPARISON: None. FINDINGS: Alignment is normal. No fracture or joint effusion. Mild osteoarthritis most prominent at the ulnotro chlear articulation. Soft tissues are unremarkable. IMPRESSION: 1. Mild osteoarthritis at the left elbow. Reviewed, dictated and finalized at location A. CAL INSTRUMENT ASSEMBLER
--- NOTE | ~2022-10-22 | XR_ITS ---
EXAMINATION: XR ankle RT 2V, XR ankle LT 2V, XR foot LT 2V, XR foot RT 2V DATE: 10/22/2022 10:53 INDICATION: Multiple joint pain TECHNIQUE: 1. Anteroposterior and lateral view of the left ankle were obtained. 2. Dorsoplantar and lateral views of the left foot were obtained. 3. Anteroposterior and lateral view of the right ankle were obtained. 2. Dorsoplantar and lateral views of the right foot were obtained. COMPARISON: None. FINDINGS: Alignment of the bilateral feet and ankles is normal. No fracture. Polyarticular osteoarthritis, mode rate at the right first metatarsophalangeal joint and mild at the left first metatarsophalangeal join t and a few bilateral interphalangeal joints. No erosions to suggest an inflammatory arthritis. Bilat eral small plantar calcaneal spurs. Normal left-sided accessory os supra naviculare. No ankle joint e ffusions. The soft tissues are unremarkable. IMPRESSION: 1. Polyarticular osteoarthritis in the bilateral forefeet, moderate at the right first metatarsophala ngeal joint and mild at the left first metatarsophalangeal and a few bilateral interphalangeal joints . Reviewed, dictated and finalized at location A. TESTER IMPRESSION: 1. Polyarticular osteoarthritis in the bilateral forefeet, moderate at the righ t first metatarsophalangeal joint and mild at the left first metatarsophalangea l and a few bilateral interphalangeal joints. IMPRESSION: 1. Polyarticular osteoarthritis in the bilateral forefeet, moderate at the righ t first metatarsophalangeal joint and mild at the left first metatarsophalangea l and a few bilateral interphalangeal joints. IMPRESSION: 1. Polyarticular osteoarthritis in the bilateral forefeet, moderate at the righ t first metatarsophalangeal joint and mild at the left first metatarsophalangea l and a few bilateral interphalangeal joints.
--- NOTE | ~2022-10-22 | XR_ITS ---
EXAMINATION: XR hip LT min 2V, XR hip RT min 2V DATE: 10/22/2022 10:53 INDICATION: Multiple joint pain TECHNIQUE: 1. Anteroposterior and frog-leg lateral views of the left hip were obtained. 2. Anteroposterior and frog-leg lateral views of the right hip were obtained. COMPARISON: None. FINDINGS: Normal alignment at the bilateral hips. No fracture or suspected avascular necrosis. Mild osteoarthri tis at both hips. Sclerotic bone island at the left ischial tuberosity. IUD projects over the central pelvis in expected position. Soft tissues are unremarkable. IMPRESSION: 1. Mild bilateral hip osteoarthritis. 2. IUD. Reviewed, dictated and finalized at location A. DRYING MACHINE OPERATOR IMPRESSION: 1. Mild bilateral hip osteoarthritis. 2. IUD.
--- NOTE | ~2022-10-22 | XR_ITS ---
EXAMINATION: XR_KNEE1-2VLT_CR DATE: 10/22/2022 10:53 INDICATION: Multiple joint pain. TECHNIQUE: AP and lateral views of the left knee were obtained. COMPARISON: None. FINDINGS: Interference screw in the medial distal metaphyseal region of the left femur likely related to prior anterior cruciate ligament reconstruction. There is increased lucency and sclerosis in the anterior a spect of the proximal tibia likely representing an associated tibial tunnel there is mild chondrocalc inosis at the medial compartment. Mild tricompartmental osteoarthritis at the left knee with cortical irregularity along the patellar apical ridge. Small marginal osteophytes in all 3 compartments. Soft tissues are unremarkable with no left knee joint effusion. IMPRESSION: 1. Mild tricompartmental osteoarthritis of the left knee. 2. Postoperative changes likely related to prior anterior cruciate ligament reconstruction. Correlate with surgical history. Reviewed, dictated and finalized at location A. LITY COORDINATOR IMPRESSION: 1. Mild tricompartmental osteoarthritis of the left knee. 2. Postoperative changes likely related to prior anterior cruciate ligament rec onstruction. Correlate with surgical history.
[2022-10-22 10:30] LABS: Hematocrit 45.3 % (37.0-47.0); Hemoglobin 15.3 g/dL (12.0-15.0); Mean Corpuscular HGB Conc 33.8 g/dl (32-36); Mean Corpuscular Hemoglobin 34.3 pg (26-34); Mean Corpuscular Volume 101.6 fl (80-100); Mean Platelet Volume 10.6 fl (7.4-10.4); Platelet Count Result 247 k/mm3 (150-375); Red Blood Count 4.46 M/mm3 (4.2-5.4); Red Cell Distribution Width 11.9 % (11.5-14.5); White Blood Count 8.3 K/mm3 (4.5-10.0)
[2022-10-22 11:12] LABS: Erythrocyte Sedimentation Rate 15 mm/hr (0-20); Hemoglobin A1C 5.1 % (<5.7)
[2022-10-22 11:28] LABS: Alanine Aminotransferase 34 U/L (6-35); Albumin Level 5.1 g/dL (3.5-5.1); Alkaline Phosphatase 79 U/L (38-126); Anion Gap 9 mmol/L (8-16); Aspartate Amino Transferase 32 U/L (14-36); Bilirubin,Total 0.6 mg/dL (0.2-1.3); Blood Urea Nitrogen 14 mg/dL (7-17); CRP < 0.5 mg/dL (<1.0); Calcium 9.7 mg/dL (8.4-10.2); Carbon Dioxide 29 mmol/L (22-30); Chloride 103 mmol/L (98-107); Creatine Kinase 91 U/L (30-135); Estimated Glomerular Filt Rate > 60; Glucose 94 mg/dL (65-110); Potassium 3.9 mmol/L (3.4-5.0); Sodium 141 mmol/L (137-145)
[2022-10-22 11:37] LABS: Free T4 Free Thyroxine 1.13 ng/mL (0.78-2.19); Vitamin D 25 Hydroxy 96.7 ng/mL
[2022-10-22 11:53] LABS: Hepatitis B Surface Antigen Negative (Negative)
[2022-10-22 12:10] LABS: Hepatitis B Surface Anti Res Negative; Hepatitis C Virus Antibody Negative (Negative)
[2022-10-22 12:48] LABS: Folic Acid > 20.0 ng/mL (2.76->20)
[2022-10-24 12:39] LABS: SS-A <1.0; SS-B <1.0
[2022-10-24 16:51] LABS: Hepatitis C RNA, Quant PCR <15 IU/mL
[2022-10-25 13:21] LABS: Hepatitis B DNA PCR <1.00 Log IU/mL; Hepatitis B DNA PCR <10 IU/mL
[2022-10-25 14:41] LABS: Vitamin B6 65.8 ng/mL (2.1-21.7)
[2022-10-26 09:28] LABS: Anti Cyclic Citrullinated Pept <16 Units (<20)
[2022-10-26 11:45] LABS: Hepatitis B Core Ab Total Nonreactive (Nonreactive)
[2022-10-30 08:09] LABS: Reference Lab Test Result <0.2
[2022-11-02 08:19] LABS: NIL 0.01 IU/mL
[2022-11-02 08:20] LABS: Quantiferon TB Plus, 1T Negative
== END 2022-10-22 09:22 | disposition home or self-care (01) ==
PROVIDERS: PCP Family Medicine; Visit Provider Internal Medicine Rheumatology
DX: M25.50 Pain in unspecified joint (principal); R53.83 Other fatigue; M19.90 Unspecified osteoarthritis, unspecified site; R73.09 Other abnormal glucose; E55.9 Vitamin D deficiency, unspecified; E53.8 Deficiency of other specified B group vitamins; Z79.899 Other long term (current) drug therapy; M16.0 Bilateral primary osteoarthritis of hip; Z97.5 Presence of (intrauterine) contraceptive device; M17.0 Bilateral primary osteoarthritis of knee; M19.011 Primary osteoarthritis, right shoulder; M19.012 Primary osteoarthritis, left shoulder; M19.021 Primary osteoarthritis, right elbow; M19.022 Primary osteoarthritis, left elbow; M19.071 Primary osteoarthritis, right ankle and foot; M19.072 Primary osteoarthritis, left ankle and foot
CPT/HCPCS: 36415; 73030; 73070; 73100; 73120; 73502; 73560; 73600; 73620; 80053; 82306; 82550; 82607; 82746; 83036; 84207; 84425; 84439; 84443; 85027; 85652; 86140; 86200; 86235; 86480; 86704; 86706; 86803; 87340; 87517; 87522

== ENCOUNTER 2022-11-19 08:28 | Outpatient (CLI) | payer OTHER, SELFPAY ==
--- NOTE | ~2022-11-19 | MR_ITS ---
EXAMINATION: MR brain/brain stem wo con DATE: 11/19/2022 09:35 INDICATION: Headache. TECHNIQUE: Magnetic resonance imaging (MRI) of the brain and brainstem was performed without intraven ous contrast. COMPARISON: None. FINDINGS: There is a focus of increased T2-weighted signal intensity in the right frontal lobe deep w shelli matter, which is within normal limits as an isolated finding. There is no intracranial hemorrhag e, acute infarction, or abnormal intracranial mass lesion. The ventricles are normal in size. The par anasal sinuses are clear. The orbits are normal. The mastoid air cells are normal. IMPRESSION: 1. Normal brain. Reviewed, dictated and finalized at location D. IMPRESSION: 1. Normal brain.
--- NOTE | ~2022-11-19 | MR_ITS ---
EXAMINATION: MRA brain wo con DATE: 11/19/2022 09:35 INDICATION: Headache. TECHNIQUE: Magnetic resonance angiography (MRA) of the brain was performed without intravenous contra st with T1-weighted SPGR by the 3D [id number]-[id number] technique. Maximum intensity projection 3D-reconstr uctions were obtained. COMPARISON: Brain MRI 11/19/2022 FINDINGS: The vertebral arteries are codominant. There is no significant stenosis of basilar artery or the post erior cerebral arteries. There is no significant stenosis of the intracranial internal carotid arteri es or anterior or middle cerebral arteries. Anterior communicating artery is normal. The posterior co mmunicating arteries are normal. There is no aneurysm. IMPRESSION: 1. Normal head MRA. Reviewed, dictated and finalized at location D. IMPRESSION: 1. Normal head MRA.
== END 2022-11-19 08:29 | disposition home or self-care (01) ==
PROVIDERS: PCP Family Medicine; Visit Provider Internal Medicine Rheumatology
DX: R51.9 Headache, unspecified (principal)
CPT/HCPCS: 70544; 70551

== ENCOUNTER 2023-03-19 14:45 | Outpatient (CLI) | payer OTHER, SELFPAY ==
--- NOTE | ~2023-03-19 | MM_ITS ---
EXAMINATION: MM screening [facility] BI w hany HISTORY: Screening mammogram TECHNIQUE: Craniocaudal and mediolateral oblique 3-D tomosynthesis images were obtained and synthetic 2-D images were generated. CAD analysis was submitted and interpreted. COMPARISON: 09/13/2021, 07/28/2020, 04/2019 bilateral screening mammogram examinations BREAST PARENCHYMAL COMPOSITION: There are scattered areas of fibroglandular density. FINDINGS: There is no evidence of suspicious mass, calcification, or architectural distortion to sugg est malignancy in either breast. There has been no suspicious interval change. IMPRESSION: 1. No mammographic evidence of malignancy. 2. Recommend routine screening mammography in one year. BI-RADS Category 1: Negative Reviewed, dictated and finalized at location A.
== END 2023-03-19 14:46 | disposition home or self-care (01) ==
PROVIDERS: PCP Family Medicine; Visit Provider Obstetrics & Gynecology
DX: Z12.31 Encounter for screening mammogram for malignant neoplasm of breast (principal)
CPT/HCPCS: 77063; 77067

== ENCOUNTER 2023-06-28 06:40 | Outpatient (CLI) | payer OTHER, SELFPAY ==
--- NOTE | ~2023-06-28 | MR_ITS ---
MRI of the right hand CLINICAL HISTORY: Pain TECHNIQUE: Coronal T1-weighted and T2 fat-sat images, axial T1-weighted and T2 fat-sat images, and sa gittal T1-weighted and T2 fat-sat images were acquired. FINDINGS: There is no fracture or evidence for osteitis. There is moderate to advanced degenerative c hange at the first carpal metacarpal joint. There is mild reactive marrow edema about the joint. Candice ining bone marrow signals and joint spaces are preserved. No joint effusion evident. Visualized colla teral ligaments and the digits appear intact. Flexor and extensor tendons appear intact. Musculature of the hand is intact. No soft tissue mass or fluid collection evident. IMPRESSION: Moderate to advanced degenerative change at the first CMC joint. No other significant findings. Reviewed, dictated and finalized at [facility]. START COORDINATOR
== END 2023-06-28 06:41 | disposition home or self-care (01) ==
PROVIDERS: PCP Family Medicine; Visit Provider Internal Medicine Rheumatology
DX: M19.041 Primary osteoarthritis, right hand (principal)
CPT/HCPCS: 73218

== ENCOUNTER 2023-09-03 09:55 | Outpatient (CLI) | payer OTHER, SELFPAY ==
[2023-09-05 21:05] LABS: FSH 162.5 mIU/mL (***)
== END 2023-09-03 09:56 | disposition home or self-care (01) ==
LOC: ANHLAB 09:57
PROVIDERS: PCP Family Medicine; Visit Provider Obstetrics & Gynecology
DX: N95.1 Menopausal and female climacteric states (principal)
CPT/HCPCS: 36415; 83001

== ENCOUNTER 2023-09-06 07:26 | Outpatient (CLI) | payer OTHER, SELFPAY ==
--- NOTE | ~2023-09-06 | DEXA_ITS ---
Bone Density Report Name: LEON REEVES Age: 53 Sex: Female Ethnicity: White Date of : 1970 Indication: screening for osteoporosis; height loss; Referring Provider: ARLENE LEONARDO Study: Bone densitometry was performed. Exam Date: September 06, 2023 Accession number: [id number] Bone Density: Region BMD T-score Z-score Classification AP Spine(L1-L4) 0.876 -1.6 -0.7 Osteopenia Femoral Neck (Left) 0.642 -1.9 -1.0 Osteopenia Total Hip (Left) 0.764 -1.5 -0.9 Osteopenia Femoral Neck (Right) 0.721 -1.2 -0.3 Osteopenia Total Hip (Right) 0.867 -0.6 -0.1 Normal Total Hip Mean 0.815 -1.1 -0.5 Osteopenia World Health Organization criteria for BMD impression classify patients as: Normal (T-score at or above -1.0), Osteopenia (T-score between -1.0 and -2.5), or Osteoporosis (T-score at or below -2.5). 10-year Fracture Risk: FRAX not reported because: Premenopausal woman Clinical Information Provided by Patient: Has used the following medications: Vitamin D Patient maximum height was 67.5 No regular weight bearing exercise Drinks caffeinated beverages Onset of menses at age 13 Premenopausal Number of children 2 Impression: The patient's bone mass is within expected range for age, gender and ethnicity. Discussion: BONE DENSITY IS WITHIN EXPECTED LIMITS FOR AGE, SEX AND RACE. Bone density is within expected limits for age, sex and race at all sites measured. The patient should follow a healthful lifestyle (good nutrition with adequate calcium and vitamin D, and appropriate weight-bearing exercise). Follow-Up: Consider repeating this study in 2 to 3 years to reassess this patient's status, or sooner if there is some new clinical indication. Reported by: JH on 09/06/2023 7:50:00 AM. Reviewed, dictated and finalized at location ATyrell AGARWAL
== END 2023-09-06 07:27 | disposition home or self-care (01) ==
PROVIDERS: PCP Family Medicine; Visit Provider Obstetrics & Gynecology
DX: R29.890 Loss of height (principal); M85.88 Other specified disorders of bone density and structure, other site; M85.852 Other specified disorders of bone density and structure, left thigh; M85.851 Other specified disorders of bone density and structure, right thigh
CPT/HCPCS: 77080

== ENCOUNTER 2023-10-21 12:44 | Outpatient (CLI) | payer OTHER, SELFPAY ==
--- NOTE | ~2023-10-21 | MR_ITS ---
EXAMINATION: MR lumbar spine wo con DATE: 10/21/2023 13:26 INDICATION: Low back pain TECHNIQUE: Magnetic resonance imaging (MRI) of the lumbar spine was performed without intravenous con trast. Sequences included sagittal T2-weighted FSE, sagittal T2-weighted FS FSE, sagittal T1-weighted FSE, and axial T2-weighted FSE. COMPARISON: None FINDINGS: Alignment is normal. Vertebral body heights are normal. Severe disc height loss with fibrovascular de generative endplate changes at L5-S1. Mild disc height loss at and L3-L4 and L4-L5. The conus medulla ris terminates at 2. There is normal signal in the caudal spinal cord. Paravertebral soft tissues are unremarkable. The following disc levels are specifically discussed: T12-L1: The disc does not extend beyond the endplate margin. There is minimal bilateral facet joint o steoarthritis. There is no neural foraminal stenosis. There is no central canal stenosis. L1-L2: Disc is mildly bulging. There is mild bilateral facet joint osteoarthritis. There is no neural foraminal stenosis. There is no central canal stenosis. L2-L3: Disc is bulging. There is mild left and minimal right facet joint osteoarthritis. There is min imal bilateral neural foraminal stenosis. There is mild central canal stenosis. L3-L4: Disc is bulging. There is mild bilateral facet joint osteoarthritis. There is mild left and mi nimal right neural foraminal stenosis. There is mild central canal stenosis. L4-L5: Disc is bulging with annular fissure. There is moderate left and severe right facet joint oste oarthritis. There is mild bilateral neural foraminal stenosis. There is mild central canal stenosis. L5-S1: Disc is bulging with annular fissure. There is moderate bilateral facet joint osteoarthritis. There is mild right and moderate left neural foraminal stenosis. There is mild central canal stenosis . IMPRESSION: 1. Severe spondylosis at L5-S1 with mild spondylosis more cephalad lumbar spine. Reviewed, dictated and finalized at location A. CARRIER IMPRESSION: 1. Severe spondylosis at L5-S1 with mild spondylosis more cephalad lumbar spine .
== END 2023-10-21 12:45 | disposition home or self-care (01) ==
LOC: ANHIMG 12:49
PROVIDERS: PCP Family Medicine; Visit Provider Internal Medicine Rheumatology
DX: M47.896 Other spondylosis, lumbar region (principal)
CPT/HCPCS: 72148

== ENCOUNTER 2024-04-30 09:32 | Outpatient (CLI) | payer OTHER, SELFPAY ==
[2024-04-30 11:55] LABS: Anion Gap 8 mmol/L (4-12); Blood Urea Nitrogen 20 mg/dL (7-17); Carbon Dioxide 27 mmol/L (22-30); Chloride 102 mmol/L (98-107); Potassium 3.9 mmol/L (3.4-5.0); Sodium 137 mmol/L (137-145)
[2024-04-30 11:56] LABS: Alanine Aminotransferase 23 U/L (6-35); Albumin Level 4.3 g/dL (3.5-5.1); Alkaline Phosphatase 78 U/L (38-126); Aspartate Amino Transferase 25 U/L (14-36); Bilirubin,Total 0.5 mg/dL (0.2-1.3); Calcium 9.1 mg/dL (8.4-10.2); Cholesterol 192 mg/dL (0-200); Estimated Glomerular Filt Rate > 60; Glucose 90 mg/dL (65-110); HDL Direct 74 mg/dL; Triglycerides 160 mg/dL (<150)
[2024-04-30 12:07] LABS: LDL Cholesterol Direct 85 mg/dL
[2024-04-30 12:31] LABS: Vitamin D 25 Hydroxy 49.6 ng/mL
[2024-05-02 02:08] LABS: FSH 143.7 mIU/mL
[2024-05-02 04:24] LABS: Progesterone <0.5 ng/mL
[2024-05-06 12:24] LABS: Testosterone Free 1.3 pg/mL (0.1-6.4); Testosterone Total 14 ng/dL (2-45)
[2024-05-06 16:44] LABS: Estrogen 38 pg/mL
== END 2024-04-30 09:33 | disposition home or self-care (01) ==
LOC: ANHLAB 09:34
PROVIDERS: PCP Family Medicine; Referring Provider Physician Assistant; Visit Provider Obstetrics & Gynecology
DX: N95.1 Menopausal and female climacteric states (principal); E55.9 Vitamin D deficiency, unspecified
CPT/HCPCS: 36415; 80053; 80061; 82306; 82672; 83001; 84144; 84402; 84403; 84443

== ENCOUNTER 2024-05-04 15:15 | Outpatient (CLI) | payer OTHER, SELFPAY ==
--- NOTE | ~2024-05-04 | MM_ITS ---
EXAMINATION: MM screening [facility] BI w hany HISTORY: Screening mammogram TECHNIQUE: Craniocaudal and mediolateral oblique 3-D tomosynthesis images were obtained and synthetic 2-D images were generated. CAD analysis was submitted and interpreted. COMPARISON: 03/19/2023, 09/13/2021, 07/28/2020, 04/22/2019 BREAST PARENCHYMAL COMPOSITION:Not Dense. There are scattered areas of fibroglandular density. FINDINGS: No suspicious mass, calcification, or architectural distortion are identified in either mary ast to suggest malignancy. There has been no suspicious interval change. IMPRESSION: No mammographic evidence of malignancy. Recommend routine screening mammography in one year. BI-RADS Category 1: Negative Reviewed, dictated and finalized at location .
== END 2024-05-04 15:16 | disposition home or self-care (01) ==
LOC: ANHIMG 15:18
PROVIDERS: PCP Physician Assistant; Visit Provider Obstetrics & Gynecology
DX: Z12.31 Encounter for screening mammogram for malignant neoplasm of breast (principal)
CPT/HCPCS: 77063; 77067

== ENCOUNTER 2024-11-10 06:39 | Outpatient (CLI) | payer OTHER, SELFPAY ==
--- OUTSIDE RECORDS SUMMARY | 2024-11-10 06:43 | XMS_ITS | Encounter Summary ---
Author Organization [facility] Address [facility] [place] [address] Care Team Providers Care Pile Driver Engineer Name Role Phone González Clark MD Primary Care Provider [phone] Encounter Details Date Type Department Care Team (Late st Contact Info) Description 07/08/2024 iSyndicat Message Enc [facility] [place] [address] [id number] Savannah Maravilla MD Three [facility] [address] [place], [place] [id number] Pain issues returned suddenly on left side; need help. Social History Tobacco Use Types Packs/Day Years Used Date Smoking Tobacco: Former Cigarettes Smokeless Tobacco: Never Alcohol Use Standard Drinks/Week Comments Yes 0 (1 standard drink = 0.6 oz pur e alcohol) social Comments No Sex and Gender Information Value Date Recorded Sex Assigned at Female 09/11/2024 2:22 PM VIDEO MACHINES MECHANIC Legal Sex Female 8:20 PM CDT Gender Identity Not on file Sexual Orientation Not on file documented as of this encounter Plan of Treatment Not on file documented as of this encounter Visit Diagnoses Not on filedocumented in this encounter Care Teams Pile Driver Engineer Relationship Specialty Start Date End Date González Clark MD [address] [place] [phone] PCP - General 02/04/24 documented as of this encounter
--- OUTSIDE RECORDS SUMMARY | 2024-11-10 06:43 | XMS_ITS | Encounter Summary ---
Author Organization [facility] Address [address] [place] [id number] Care Team Providers Care Surgical Supervisor Name Role Phone Mayra Felix MD Primary Care Provider [phone] González Clark MD Primary Care Provider [phone] Encounter Details Date Type Department Care Team (Late st Contact Info) Description 01/20/2024 Socket Mobilet Message Enc [facility] Interventional [facility] Management Center [address] [place], [place] [phone] [id number] Savannah Maravilla MD Three [facility] [address] [place] [address] Lumbar injections from January 06. Social History Tobacco Use Types Packs/Day Years Used Date Smoking Tobacco: Never Smokeless Tobacco: Never Alcohol Use Standard Drinks/Week Comments Yes 0 (1 standard drink = 0.6 oz pur e alcohol) social Comments No Sex and Gender Information Value Date Recorded Sex Assigned at Female 09/11/2024 2:22 PM MANAGER ANALYTICAL Legal Sex Female 8:20 PM CDT Gender Identity Not on file Sexual Orientation Not on file documented as of this encounter Plan of Treatment Not on file documented as of this encounter Visit Diagnoses Not on filedocumented in this encounter Care Teams Surgical Supervisor Relationship Specialty Start Date End Date Mayra Felix MD [address] [address] PCP - General 12/19/23 02/03/24 González Clark MD [address] [place] [phone] PCP - General 02/04/24 documented as of this encounter
--- OUTSIDE RECORDS SUMMARY | 2024-11-10 06:43 | XMS_ITS | Encounter Summary ---
Author Organization [facility] Address [facility] [place] [address] Care Team Providers Care Pump House Operator Name Role Phone González Clark MD Primary Care Provider [phone] Encounter Details Date Type Department Care Team (Late st Contact Info) Description 05/27/2024 Parrablet Message Enc [facility] Interventional [place] [address] [id number] Savannah Maravilla MD Three [facility] [address] [place], [place] [phone] Trying desperately to get another appointment with Dr Sanchez Social History Tobacco Use Types Packs/Day Years Used Date Smoking Tobacco: Former Cigarettes Smokeless Tobacco: Never Alcohol Use Standard Drinks/Week Comments Yes 0 (1 standard drink = 0.6 oz pur e alcohol) social Comments No Sex and Gender Information Value Date Recorded Sex Assigned at Female 09/11/2024 2:22 PM SYSTEM AUDITOR Legal Sex Female 8:20 PM CDT Gender Identity Not on file Sexual Orientation Not on file documented as of this encounter Plan of Treatment Not on file documented as of this encounter Visit Diagnoses Not on filedocumented in this encounter Care Teams Pump House Operator Relationship Specialty Start Date End Date González Clark MD [address] [place] [phone] PCP - General 02/04/24 documented as of this encounter
--- OUTSIDE RECORDS SUMMARY | 2024-11-10 06:43 | XMS_ITS | Referral Summary ---
Author Organization [facility] D Address [address] [place] [address] Care Team Providers Care Application Administrator Name Role Phone Crescencio Victoria MD Unavailable [phone] Hima Silver Primary Care Provider + Encounters Date Type Department Care Team Description 10/12/2024 10:00 AM FAN MAIL EDITOR Office Visit [facility] [address] [facility] [address] [place] [phone] Varsha Swenson NP Cardiac arrhythmia, unspecified cardiac arrhythmia type (Primary Dx) from Last 3 Months Allergies Active Allergy Reactions Criticality Noted Date Comments Codeine Rash High Medications ergocalciferol (VITAMIN D) 50,000 unit capsule TAKE 1 CAPSULE BY MOUTH ONCE A WEEK 04/25/20 21 Active metoprolol XL (TOPROL-XL) 25 mg extended release tablet Take 0.5 tablets (12.5 mg total) by mouth daily 30 tablet 5 10/12/19 25 026 Active flecainide (TAMBOCOR) 150 mg tablet TAKE 1 TABLET TWICE A DAY 180 tablet 3 11/05/19 25 Active flecainide (TAMBOCOR) 150 mg tablet TAKE 1 TABLET TWICE A DAY 180 tablet 3 03 025 Discontinued metoprolol tartrate (LOPRESSOR) 25 mg immediate release tablet Take 0.5 tablets (12.5 mg total) by mouth 2 (two) times a day as needed (palpitatio ns) 90 tablet 04/03/20 24 025 Discontinued(Th erapy completed) Active Problems Problem Noted Date Diagnosed Date Ventricular ectopy 12/11/2023 Resolved Problems Problem Noted Date Diagnosed Date Resolved Date VT (ventricular tachycardia) 12/08/2018 12/11/2023 Overview (12/08/2018): Added automatically from request for surgery Social History Tobacco Use Types Packs/Day Years Used Date Smoking Tobacco: Light Smoker Smokeless Tobacco: Never Alcohol Use Standard Drinks/Week Comments Yes 0 (1 standard drink = 0.6 oz pur e alcohol) occasionally Comments No Sex and Gender Information Value Date Recorded Sex Assigned at Not on file Legal Sex Female 1:09 PM FAN MAIL EDITOR Gender Identity Not on file Sexual Orientation Not on file Last Filed Vital Signs Vital Sign Reading Time Taken Comments Blood Pressure 128/92 10/12/2024 10:07 AM FAN MAIL EDITOR Pulse 76 10/12/2024 10:07 AM FAN MAIL EDITOR Temperature 36.7 C (98.1 F) 11/04/2018 8:52 AM CDT Respiratory Rate 16 10/31/2021 11:18 AM CDT Oxygen Saturation 100% 04/03/2024 10:05 AM CDT Inhaled Oxygen Concentration - - Weight 82.1 kg (181 lb) 10/12/2024 10:07 AM FAN MAIL EDITOR Height 167.6 cm (5' 6 ) 10/12/2024 10:07 AM FAN MAIL EDITOR Body Mass Index 29.21 10/12/2024 10:07 AM FAN MAIL EDITOR Plan of Treatment Not on file Procedures Procedure Name Priority Date/Time Associated Diagnosis Comments ECG 12-LEAD Routine 10/12/2024 10:08 AM FAN MAIL EDITOR Cardiac arrhythmia, unspecified cardiac arrhythmia type DIGITAL MAMMOGRAPHY Routine 10/08/2014 1 2:00 AM FAN MAIL EDITOR from Last 3 Months or Most Recently Relevant to Health Maintenance Results * ECG 12 lead (10/12/2024 10:08 AM FAN MAIL EDITOR) Varsha Luan Messi TRANSFER ENGINEER ECG ORDERABLES Final Resu lt * DIGITAL MAMMOGRAPHY (10/08/2014 12:00 AM FAN MAIL EDITOR) Anatomical Region Laterality Modality Breast Mammography 10/08/2014 Narrative 10/08/2014 10:19 AM FAN MAIL EDITOR [place], [place] LEON CRUZ ANC ENCOUNTER: [id number] BIRTHDATE: 1970 ORDERING PHYSICIAN: Patito Hernandez DO ATTENDING PHYSICIAN: Patito Hernandez DO TECHNOLOGIST: Dayana Marcum EXAM DATE: 10/08/2014 08:22 X-RAY#: [id number] DEPARTMENT OF RADIOLOGY MAMMOGRAPHY REPORT EXAM DESCRIPTION Mammogram. HISTORY Screening. The lifetime risk is 11.9 percent based on the Yeni Risk Model. FINDINGS Bilateral mammograms obtained and compared to previous study of 09/09/2013. The breast parenchyma is scattered fibroglandular. There are no masses or distortions. There are no suspicious calcifications to indicate malignancy. IMPRESSION Negative for malignancy. Recommend annual screening. 2-dimensional direct digital mammography and 3-dimensional tomosynthesis was obtained. Computer Aided Detection (CAD) version 7.2 was used in the interpretation of this study. SUMMARY ASSESSMENT BI-RADS 1: Negative. The above report was dictated at [facility]. Authenticated by Edwar You MD On 10/08/2014 11:59 Edwar You MD TJE:cjs Doc #: [id number] Dictation CC: Patito Hernandez DO Procedure Note Provider, MD Michael - 12/21/2016 [place], [place] LEON CRUZ ENCOUNTER: [id number] BIRTHDATE: 1970 ORDERING PHYSICIAN: Patito Hernandez DO ATTENDING PHYSICIAN: Patito Hernandez DO TECHNOLOGIST: Dayana Marcum EXAM DATE: 10/08/2014 08:22 X-RAY#: [id number] DEPARTMENT OF RADIOLOGY MAMMOGRAPHY REPORT EXAM DESCRIPTION Mammogram. HISTORY Screening. The lifetime risk is 11.9 percent based on the Yeni Risk Model. FINDINGS Bilateral mammograms obtained and compared to previous study of09/09/2013. The breast parenchyma is scattered fibroglandular. There are no massesor distortions. There are no suspicious calcifications to indicatemalignancy. IMPRESSION Negative for malignancy. Recommend annual screening. 2-dimensional direct digital mammography and 3-dimensional tomosynthesiswas obtained. Computer Aided Detection (CAD) version 7.2 was used in the interpretationof this study. SUMMARY ASSESSMENT BI-RADS 1: Negative. The above report was dictated at [facility]. Authenticated by Edwar You MD On 10/08/2014 11:59 Edwar You MD [email or web address]:cjs Doc #: [id number] Dictation CC: Patito Hernandez DO Historical Provider IMDeborah MAMMO PROCEDURES Xochitl l Result from Last 3 Months or Most Recently Relevant to Health Maintenance Insurance [facility] CLAIMS Member Subscriber Plan / Payer (Ef fective 2018-Present) Name:Leon Cruz Relation to Subscriber:Self Name:Anupam Cruzy Mily Payer ID:[id number] (NAIC) Group ID:Not on file Type:[employer] Address: [place] [id number] [place] [address] [facility] Member Subscriber Plan / Payer (Ef fective 2018-Present) Name:Leon Cruz Relation to Subscriber:Spouse Name:Chad Cruz Date of :1971 Address: [address] [place] [address] [place] [address] Payer ID:[id number] (NAIC) Group ID:Not on file Type:[facility] Address: [place] [phone] [place] [address] Advance Directives For more information, please contact: [phone] * Full Code (Latest Code Status on File) Date Activated Date Inactivated Comments 11/01/2018 9:32 PM 11/04/2018 3:28 PM Care Teams Application Administrator Relationship Specialty Start Date End Date Hima Silver PA [facility] [place] [address] PCP - General Internal Medicine 02/11/24 Crescencio Victoria MD Consulting Physician Cardiology 11/04/18
--- OUTSIDE RECORDS SUMMARY | 2024-11-10 06:43 | XMS_ITS | Encounter Summary ---
Author Organization [facility] Address [address] [place] [address] Care Team Providers Care Bander And Cellophaner Machine Name Role Phone González Clark MD Primary Care Provider [phone] Encounter Details Date Type Department Care Team (Late st Contact Info) Description 05/27/2024 Prep for Procedure [facility] [address] [place] [phone] Lea Cevallos, STITCHER AROUND [address] [facility] [address] [place] [phone] (Work) Social History Tobacco Use Types Packs/Day Years Used Date Smoking Tobacco: Former Cigarettes Smokeless Tobacco: Never Alcohol Use Standard Drinks/Week Comments Yes 0 (1 standard drink = 0.6 oz pur e alcohol) social Comments No Sex and Gender Information Value Date Recorded Sex Assigned at Female 09/11/2024 2:22 PM RATE SUPERVISOR Legal Sex Female 8:20 PM CDT Gender Identity Not on file Sexual Orientation Not on file documented as of this encounter Plan of Treatment Not on file documented as of this encounter Visit Diagnoses Not on filedocumented in this encounter Care Teams Bander And Cellophaner Machine Relationship Specialty Start Date End Date González Clark MD [address] [place] [id number] PCP - General 02/04/24 documented as of this encounter
--- OUTSIDE RECORDS SUMMARY | 2024-11-10 06:43 | XMS_ITS | Data Portability ---
Author Organization [place] - [facility] [employer], Main Office Address [address] [place] [address] Assessment No assessment recorded. Plan of Treatment Reminders Order Date Submit Date Provider Last Modified By Organization Details Last Modified Time Details Appointments None recorded. Lab HbA1c (hemoglobin A1c), blood 2023 024 [email or web address] Not available 4 09:04:16 Referral physical therapist referral - *Please call pt to schedule* 2022 023 [email or web address] 256 [facility], [address], [place], [address], 4 08:47:29 cardiologis t referral 2022 023 [email or web address] Hema Bundy, [address] [facility] [address], [place], [address], 3 08:58:17 noodle catalyst maker referral 2022 023 [email or web address] Daren Austin Jr DP, [address], [place], [address], 3 08:58:21 Procedures None recorded. Surgeries None recorded. Imaging None recorded. Medication Orders prednisone 20 mg tablet 2023 024 [id number], [address], [place], [place], [id number], 4 09:21:04 azithromyci n 250 mg tablet 2023 024 [facility] #[id number], [address] [place], [place], [id number], 4 09:21:04 benzonatate 200 mg capsule 2023 024 [facility] #[id number], [address], [place], [id number], 4 09:21:05 minoxidil 2.5 mg tablet 2023 024 [facility], [address], [place], [address], 4 15:39:05 cyclobenzap rine 10 mg tablet 2022 023 [facility], [address], [place], [address], 4 15:19:28 Depo-Medrol 80 mg/mL suspension for injection 2022 023 [email or web address] Not available 3 12:59:50 lisinopril 20 mg tablet [address] [place] [address] Pharmacy 4878, [address], [place], [address], 4 15:34:34 Patient TargetsNo targets recorded. Patient Instructions Encounter Date Encounter Id Patient Instructions Last Modified By Organization Details Last Modified Time 08/18/2024 [id number] she is taking ot c sudafed . 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 Referral for Philomena lebron history of Cardiovascular disease Referring Physician: Mayra Alexander, Family Medicine, Encounter Date: 03/12/2023 Drywaller Referral for Arth ritis of first metatarsophalangeal joint of right foot Referring Physician: Mayra Alexander Family Medicine, Encounter Date: 03/12/2023 Physical Therapist Referral for Injury of hip region *Please call pt to schedule* Referring Physician: Hima Silver [facility], Encounter Date: 07/26/2023 Results Created Date Observation Date Name Description Value Unit Range Abnormal Flag Note LastModifiedBy Organization Detail LastModifiedTime 10/12/19 23 10/12/2022 US, duple x, venou s, lower extre mity, unila teral No observ ation record ed. [id number] [facility], [place], [address], 10/17/2022 19:16:31 10/12/19 23 10/12/2022 US, duple x, venou s, lower extre mity, unila teral No observ ation record ed. [id number] [place] [address] Rte [facility], [place], [address], 10/17/2022 19:16:31 10/23/19 23 10/22/2022 XR, ankle No observ ation record ed. [address] [facility], [place], [address], 10/23/2022 08:08:21 10/23/19 23 10/22/2022 XR, elbow , 2 view No observ ation record ed. [address] [facility], [place], [address], 10/23/2022 08:08:35 10/23/19 23 10/22/2022 XR, elbow , 2 view No observ ation record ed. [address] [place] [address], [address], 10/23/2022 08:08:49 10/23/19 23 10/22/2022 XR, wrist + hand No observ ation record ed. [address] [place] [address], [address], 10/23/2022 08:09:06 10/23/19 23 10/22/2022 XR, shoul shira No observ ation record ed. [address], [place], [address], 10/23/2022 08:09:20 10/23/19 23 10/22/2022 imagi ng/di agnos tic resul t No observ ation record ed. [address], [place], [address], 10/23/2022 08:16:49 10/23/19 23 10/22/2022 XR, knee, 3 view No observ ation record ed. [address], [place], [address], 10/23/2022 08:17:05 10/23/19 23 10/22/2022 LDXR, hip, bilat eral, 2 view No observ ation record ed. [address], [place], [address], 10/23/2022 08:17:26 11/20/19 23 11/19/2022 MRI, brain stem, w/ contr ast No observ ation record ed. [address], [place], [address], 11/20/2022 08:17:56 11/20/19 23 11/19/2022 MRI, brain + brain stem, w/o contr ast No observ ation record ed. [address], [place], [address], 11/20/2022 08:18:11 03/19/20 23 03/19/2023 MAMMO , scree roberto carlos, digit al, bilat eral No observ ation record ed. [address], [place], [address], 03/19/2023 16:55:07 06/28/20 23 06/28/2023 MRI, hand, w/o contr ast No observ ation record ed. [place] [id number] [facility] [address], [place], [address], 07/01/2023 08:22:15 09/09/19 24 09/06/2023 DEXA, axial skele ton No observ ation record ed. [email or web address] [facility] [address] [facility] [address], [place], [address], 09/12/2023 16:23:39 10/21/19 24 10/21/2023 MRI, lumba r spine , w/o contr ast No observ ation record ed. [place] [id number] [facility] [address], [place], [address], 10/22/2023 08:43:32 Result Notes None recorded. Problems Name Problem SNOMED Code Status Onset Date Resolution Date Notes Provider Name and Address Organization Details Recorded Time Bilateral osteoarthr itis of finger of hands 3319403429472 06 Active 2021 Not Available [facility] 3 19:15:26 Pain of bilateral hands 8543562741465 9109 Active 2021 Not Available [facility] 3 19:15:26 Wrist joint pain 821489676 Active Not Available [facility] 3 19:15:27 Lateral epicondyli tis 141051201 Active Not Available [facility] 3 19:15:27 Osteoarthr itis 619338489 Active Not Available [facility] 3 19:15:27 Eczema 54751854 Active 2016 Not Available [facility] 3 19:15:27 Ventricula r arrhythmia 56673592 Active 2022 Not Available [facility] 3 19:15:27 Abnormal red blood cell volume 822322911 Active 2021 Not Available [facility] 3 19:15:27 Acquired right hallux rigidus 2301610673753 00 Active 2021 Not Available [facility] 3 19:15:27 Medial epicondyli tis 39255989 Active Not Available [facility] 3 19:15:27 Macrocytic anemia 05873002 Active 2021 Not Available [facility] 3 19:15:27 Essential hypertensi on 54773600 Active 2022 Mayra Alexander MD [address], [place], [address] , [place] - [facility] [facility] [employer] 3 08:26:08 Multiple joint pain 61841802 Active 2022 Mayra Alexander MD [address], [place], [address] , [employer] [facility] [employer] 3 09:18:09 Arthritis of first metatarsop halangeal joint of right foot 3375872628224 9108 Active 2022 Mayra Alexander MD [address], [place], [address] , [employer] - [employer] [facility] [employer] 3 14:29:32 Diabetes mellitus 02787812 Active 2022 Carri Vivar [facility], [place] - [employer] [employer] 3 10:27:32 Injury of hip region 054775033 Active 2022 DANIA Acevedo [address], [place], [address] , [employer] - [facility] [employer] [facility] [employer] 3 12:47:59 Contact dermatitis 82517166 Active 2023 DANIA Acevedo [address], [place], [address] , [place] - [facility] [employer] [facility] [employer] 4 15:57:55 Menopausal flushing 654067844 Active 2023 DANIA Acevedo [address], [place], [address] , [employer] [facility] 4 15:57:24 Adult health examinatio n Active 2023 DANIA Acevedo [address], [place], [address] , [facility] [employer] [facility] [employer] 4 10:39:33 Bronchitis 21926717 Active 2023 DANIA Acevedo [address], [place], [address] , [facility] [employer] [facility] [employer] [facility] 4 09:17:20 Problem Notes None recorded. Procedures Surgical History Date Name Laterality Status Provider Name and Address Organization Details Recorded Time 09/06/19 24 bone density scan completed Lucy Eldridge RN [place] [employer] [facility] [employer] 09/12/2023 16:23:31 09/11/19 22 colonoscopy completed Not Available [facility] 10/18/19 19:14:28 Knee completed Not Available [facility] 08/2022 19:14:28 section completed Not Available [facility] 10/17/2022 19:14:28 oophorectomy completed Not Available [facility] 10/17/2022 19:14:28 Imaging Results Imaging Date Name Status LastModified by Organiz ation Details LastModified Time 10/12/2022 US, duplex, venous, lower extremity, unilateral completed [id number], [address], 10/17/2022 19:16:31 10/12/2022 US, duplex, venous, lower extremity, unilateral completed [id number], [address], 10/17/2022 19:16:31 10/22/2022 XR, ankle completed [address], [address], 10/23/2022 08:08:21 10/22/2022 XR, elbow, 2 view completed [address], [address], 10/23/2022 08:08:35 10/22/2022 XR, elbow, 2 view completed [address], [address], 10/23/2022 08:08:49 10/22/2022 XR, wrist + hand completed [address], [place], [address], 10/23/2022 08:09:06 10/22/2022 XR, shoulder completed [address] [facility], [place], [address], 10/23/2022 08:09:20 10/22/2022 imaging/diagnos tic result completed [address] [facility], [place], [address], 10/23/2022 08:16:49 10/22/2022 XR, knee, 3 view completed [address] [facility], [place], [address], 10/23/2022 08:17:05 10/22/2022 LDXR, hip, bilateral, 2 view completed [address] [facility], [place], [address], 10/23/2022 08:17:26 11/19/2022 MRI, brain stem, w/ contrast completed [address] [facility], [place], [address], 11/20/2022 08:17:56 11/19/2022 MRI, brain + brain stem, w/o contrast completed [address] [facility], [place], [address], 11/20/2022 08:18:11 03/19/2023 MAMMO, screening, digital, bilateral completed [address] [place] [address], [address], 03/19/2023 16:55:07 06/28/2023 MRI, hand, w/o contrast completed [address] [place] [address], [address], 07/01/2023 08:22:15 09/06/2023 DEXA, axial skeleton completed [email or web address] [place] [id number] [facility] [address], [address], 09/12/2023 16:23:39 10/21/2023 MRI, lumbar spine, w/o contrast completed [email or web address] [facility] [address] [facility] [address], [place], [address], 10/22/2023 08:43:32 Procedure Notes None recorded. Medical Equipment None Reported. Allergies Allergen ID Allergen Name Allergen Category Reaction Reaction Severity Criticality Documentation Date Start Date Code Code System Note Provider Name and Address Organization Details Recorded Time 44267 codeine medicatio n rash Not available Not available 10/17/2022 2670 RxNorm Not Available [facility] 19:16:28 Medications Name Sig Start Date Stop Date Status Note LastModified by Organization Details LastModified Time nifedipine ER 30 mg tablet,ext ended release 24 hr active Not Available Not Available Not Available celecoxib 200 mg capsule TAKE 1 CAPSULE BY MOUTH TWICE DAILY NEEDED FOR JOINT PAIN active Not Available Not Available No t Available cyclobenza lyric 10 mg tablet TAKE 1 TABLET BY MOUTH ONCE DAILY AT BEDTIME FOR 30 DAYS 06/10 completed Not Available Not Available Not Available prednisone 10 mg tablet TAKE 1 TABLET BY MOUTH THREE TIMES DAILY FOR 3 DAYS THEN 1 TWICE DAILY FOR 2 DAYS THEN 1 ONCE DAILY FOR 1 DAY 08/09 completed Not Available Not Available Not Available flecainide 150 mg tablet active Not Available Not Available Not Available triamcinol one acetonide 0.5 % topical cream 07/09 completed Not Available Not Available Not Available azithromyc in 250 mg tablet Take 2 TABLET EVERY DAY by oral route for 1 day. Than 1 tablet for 4 days active Not Available Not Available No t Available ibuprofen 800 mg tablet TAKE 1 TABLET BY MOUTH THREE TIMES DAILY NEEDED FOR 30 DAYS active Not Available Not Available No t Available benzonatat e 200 mg capsule TAKE 1 CAPSULE BY MOUTH THREE TIMES DAILY NEEDED active Not Available Not Available No t Available meloxicam 15 mg tablet active Not Available Not Available Not Available lisinopril 20 mg tablet Take 1 tablet every day by oral route in the morning for 90 days. 06/10 completed tickle cough Not Available Not Available Not Available prednisone 20 mg tablet Take 2 tabs PO twice daily for 2 days; 1 tab PO twice daily for 5 days; 1/2 tab PO twice daily for 2 days; 1/2 tab PO once for 1 day. TAKE 2ND DOSE EVERYDAY AT NOON-10 DAY COURSE active Not Available Not Available No t Available Prometrium 100 mg capsule TAKE 1 CAPSULE BY MOUTH DAILY active Not Available Not Available No t Available clobetasol 0.05 % topical cream 04/02 completed Not Available Not Available Not Available ciprofloxa robyn 500 mg tablet TAKE 1 TABLET BY MOUTH EVERY 12 HOURS FOR 10 DAYS active Not Available Not Available No t Available minoxidil 2.5 mg tablet TAKE 2 TABLETS BY MOUTH ONCE DAILY IN THE MORNING active Not Available Not Available No t Available triamcinol one acetonide 0.1 % topical cream APPLY A THIN LAYER TO THE AFFECTED AREA(S) BY TOPICAL ROUTE 2 TIMES PER DAY active Not Available Not Available No t Available ondansetro n 8 mg disintegra ting tablet 04/02 completed Not Available Not Available Not Available Depo-Medro l 80 mg/mL suspension for injection Take 1 mL by injectio n route. 2022 active Not Available Not Available Not Avai lable ketorolac 0.5 % eye drops INSTILL 1 DROP INTO LEFT EYE 4 TIMES DAILY FOR 3 DAYS 04/11 completed Not Available Not Available Not Available prednisone 10 mg tablets in a dose pack Take 1 tab by mouth, 3 times a day for 3 daysTake 1 tab by mouth 2 times a day for 2 daysTake 1 tab by mouth once a day for 1 day 08/09 completed Not Available Not Available Not Available losartan 100 mg-hydroch lorothiazi de 25 mg tablet Take 1 tablet every day by oral route for 30 days. 10/29 completed Not Available Not Available Not Available oxycodone- acetaminop hen 5 mg-325 mg tablet TAKE 1 TABLET BY MOUTH EVERY 6 HOURS NEEDED FOR PAIN active Not Available Not Available No t Available estradiol 1 mg tablet TAKE 1 TABLET BY MOUTH DAILY FOR 10 DAYS active Not Available Not Available No t Available Kenalog 10 mg/mL suspension for injection In office injectio n administ ered by the provider 10/12 completed ND: [id number] Not Available Not Available Not Available benzonatat e 100 mg capsule Take 1 capsule 3 times a day by oral route as needed. 07/09 completed Not Available Not Available Not Available rizatripta n 10 mg disintegra ting tablet 1 at onset of headache and may repeat in 2 hours as needed 11/10 completed Not Available Not Available Not Available oseltamivi r 75 mg capsule 04/02 completed Not Available Not Available Not Available misoprosto l 200 mcg tablet 07/09 completed Not Available Not Available Not Available flecainide 50 mg tablet 04/11 completed Not Available Not Available Not Available flecainide 100 mg tablet 06/15 completed Not Available Not Available Not Available progestero ne micronized 200 mg capsule active Not Available Not Available Not Available hydrochlor othiazide 12.5 mg capsule Take 1 capsule every day by oral route. 09/17 completed Not Available Not Available Not Available butalbital -aspirin-c affeine 50 mg-325 mg-40 mg capsule Take 1 capsule every 4 hours by oral route as needed. 07/06 completed Not Available Not Available Not Available gabapentin 300 mg capsule TAKE 1 CAPSULE BY MOUTH ONCE DAILY AT BEDTIME FOR 3 DAYS THEN 1 TWICE DAILY FOR 3 DAYS THEN 1 THREE TIMES DAILY 06/10 completed Not Available Not Available Not Available omeprazole 20 mg capsule,de layed release TAKE 1 CAPSULE DAILY active Not Available Not Available No t Available lisinopril 20 mg-hydroch lorothiazi de 25 mg tablet Take 1 tablet every day by oral route. 04/14 completed Not Available Not Available Not Available esterified estrogens- methyltest osterone 1.25 mg-2.5 mg tablet TAKE 1 TABLET BY MOUTH EVERY DAY active Not Available Not Available No t Available ergocalcif jennifer (vitamin D2) 1,250 mcg (50,000 unit) capsule Take 1 capsule by mouth once a week 2024 active Not Available Not Available Not Avai lable scopolamin e 1 mg over 3 days transderma l patch Apply 1 patch every 72 hours by transder mal route. 04/11 completed Not Available Not Available Not Available methylpred nisolone 4 mg tablets in a dose pack TAKE BY MOUTH DIRECTED ON INSIDE OF PACKAGE 04/11 completed Not Available Not Available Not Available losartan 50 mg-hydroch lorothiazi de 12.5 mg tablet TAKE 1 TABLET BY MOUTH EVERY DAY IN THE MORNING FOR HIGH BLOOD PRESSURE active Not Available Not Available No t Available rizatripta n 5 mg disintegra ting tablet 01/28 completed Not Available Not Available Not Available metoclopra mide 10 mg tablet TAKE 1 TABLET BY MOUTH A ONE TIME DOSE FOR NAUSEA AND FOR VOMITING 30 MINUTES PRIOR TO PROCEDUR E active Not Available Not Available No t Available amoxicilli n 875 mg-potassi um clavulanat e 125 mg tablet Take 1 tablet every 12 hours by oral route for 10 days. active Not Available Not Available No t Available neomycin-p olymyxin-h ydrocort 3.5 mg-10,000 unit/mL-1 % ear drops,susp INSTILL 4 DROPS INTO AFFECTED EAR(S) BY OTIC ROUTE 3 TIMES PER DAY active Not Available Not Available No t Available Benadryl Allergy 25 mg tablet 1 to 2 tabs po at be bedtime 2023 active Not Available Not Available Not Avai lable moxifloxac in 0.5 % eye drops INSTILL 1 DROP IN LEFT EYE FOUR TIMES DAILY FOR 5 DAYS 04/11 completed Not Available Not Available Not Available metoprolol tartrate 25 mg tablet TAKE 1/2 (ONE-RICHARD F) TABLET BY MOUTH TWICE DAILY NEEDED FOR PALPITAT IONS active Not Available Not Available No t Available duloxetine 30 mg capsule,de layed release 06/10 completed Not Available Not Available Not Available pregabalin 50 mg capsule TAKE 1 CAPSULE BY MOUTH EVERY NIGHT AT BEDTIME FOR 1 WEEK THEN TAKE 1 CAPSULE BY MOUTH TWICE DAILY active Not Available Not Available No t Available lidocaine (PF) 10 mg/mL (1 %) injection solution In office injectio n administ ered by the provider 07/[address] [facility]: [phone] Not Available Not Available Not Available tretinoin 0.05 % topical gel USE DIRECTED 04/11 completed Not Available Not Available Not Available ropivacain e (PF) 5 mg/mL (0.5 %) injection solution Take 10 mg by injectio n route. 10/12 completed Not Available Not Available Not Available Dexonto 0.4 % iontophore tic transderma l solution Apply 30 mL as needed by transder mal route. 04/11 completed Not Available Not Available Not Available Flucelvax Quad 60 mcg (15 mcg x 4)/0.5 mL intramuscu lar susp active Not Available Not Available Not Available Slynd 4 mg (28) tablet 07/06 completed Not Available Not Available Not Available Nurtec ODT 75 mg disintegra ting tablet active Not Available Not Available Not Available Vitals Date Recorded Body height Body mass index (BMI) Body weight Body temperature Heart rate Oxygen saturation Oxygen saturation in Arterial blood by Pulse oximetry Systolic blood pressure Diastolic blood pressure Provider Name and Address Organization Details Last Updated DateTime 3 167.64 cm 26.8 kg/m2 24681.3 3 g 97.9 [degF] 88 /min 99 % 99 % 122 mm[Hg] 80 mm[Hg] XANDER Luis [facility] [employer] [facility] 3 09:09:20 Date Recorded Body height Body mass index (BMI) Body weight Body temperature Heart rate Oxygen saturation Oxygen saturation in Arterial blood by Pulse oximetry Systolic blood pressure Diastolic blood pressure Provider Name and Address Organization Details Last Updated DateTime 3 167.64 cm 27.3 kg/m2 21626.1 1 g 98.1 [degF] 66 /min 98 % 98 % 122 mm[Hg] 80 mm[Hg] XANDER Luis [facility] [employer] [facility] 3 14:17:19 Date Recorded Body height Body mass index (BMI) Body weight Body temperature Heart rate Respiratory rate Oxygen saturation Oxygen saturation in Arterial blood by Pulse oximetry Systolic blood pressure Diastolic blood pressure Provider Name and Address Organization Details Last Updated DateTime 3 167.64 cm 27 kg/m2 63141.9 3 g 97.5 [degF] 68 /min 16 /min 98 % 98 % 114 mm[Hg] 78 mm[Hg] Veronica Fuller RN [facility] [employer] [facility] 3 12:42:37 Date Recorded Body height Body mass index (BMI) Body weight Body temperature Heart rate Oxygen saturation Oxygen saturation in Arterial blood by Pulse oximetry Systolic blood pressure Diastolic blood pressure Provider Name and Address Organization Details Last Updated DateTime 4 167.64 cm 27.4 kg/m2 19740.7 g 97.9 [degF] 52 /min 99 % 99 % 120 mm[Hg] 90 mm[Hg] Lexie Hay RN [facility] [employer] [facility] 4 15:23:29 Date Recorded Body height Body mass index (BMI) Body weight Body temperature Heart rate Oxygen saturation Oxygen saturation in Arterial blood by Pulse oximetry Systolic blood pressure Diastolic blood pressure Provider Name and Address Organization Details Last Updated DateTime 4 167.64 cm 27.9 kg/m2 70895.4 8 g 98 [degF] 73 /min 98 % 98 % 142 mm[Hg] 92 mm[Hg] Lexie Hay RN [facility] [employer] [facility] 4 09:09:03 Social History Question Answer Notes LastModified by Organizat ion Details LastModified Time Tobacco Smoking Status Current Every Day Smoker Alize figueroa [place] [employer] [facility] [employer] [facility] 11/09/2022 09:02:26 What Is Your Level Of Alcohol Consumption? Occasional [id number] Information not available 10/17/2022 Sex: Unknown Functional Status None recorded. Mental Status None recorded. Family History Nothing Reported. Medical History Condition Response HEART ARRHYTHMIA Y Gynecological HistoryNo gynecological history recorded. Obstetrics History GPAL:G 0 P 0 0 0 0 Immunizations Vaccine Type Date Status Note Provider Nam e and Address Organization Details Recorded Time Influenza, split virus, quadrivalent, PF 07/06/2020 completed Not Available [employer] 3 19:16:26 Past Encounters Encounter ID Performer Location Encounter Start Date Encounter Closed Date Diagnosis/Indication Diagnosis SNOMED-CT Code Diagnosis ICD10 Code Diagnosis Note [id number] [facility] [place] [address] 04/06/2021 00:00:00 04/07/2021 06:03:57 [id number] [facility] [address] [place] [place] [address] 11/15/2021 00:00:00 11/15/2021 19:10:30 [id number] [facility] [address] 04/11/2022 00:00:00 04/11/2022 22:38:01 [id number] [facility] [place] [address] [place] [address] 04/26/2022 00:00:00 04/26/2022 16:38:27 [id number] [facility] [place] [address] [place] [address] 08/09/2022 00:00:00 08/09/2022 10:53:16 [id number] [facility] [place] [address] [place] [address] 10/12/2022 00:00:00 10/12/2022 13:58:20 [id number] Mayra Alexander MD [facility] [address] [place] [address] 11/09/2022 09:00:42 11/09/2022 09:22:07 Essential hypertension [id number] I10 Continue lisinopril F/u in 3 months. Multiple joint pain 3567 8005 M25.50 F/u with rheumatolo gist Bite of bed bug [id number] 0 W57.XXXA Use benadryl and HC cream [id number] Mayra Alexander MD [facility] [address] [place] [address] 03/12/2023 14:11:17 03/12/2023 14:44:20 Family history of Cardiovascular disease [id number] Z82.49 Arthritis of first metatarsophalangeal joint of right foot [id number] 6986353 M13.871 Essential hypertension 70825351 I10 Continue lisinopril F/u in 3 months. [id number] DANIA Acevedo [facility] [address] [place] [address] 07/26/2023 12:32:26 08/08/2023 09:58:04 Injury of hip region [id number] S79.911A [id number] DANIA Acevedo [facility] [address] [facility] [place] [address] 06/10/2024 14:54:21 06/10/2024 15:50:44 Essential hypertension 40299797 I10 Adult heal th examination 751643000 Z00.00 Bilateral osteoarthritis of finger of hands 8669792806 47977 M19.041 M19.042 Diabetes mellitus 168044 09 E11.9 Multiple joint pain 3567 8005 M25.50 Osteoarthritis 372876975 M19.90 [id number] DANIA Acevedo [facility]_[address] [address] 08/18/2024 08:56:40 08/18/2024 09:25:48 Bronchitis 60342428 J40 Essential hypertension 06668583 I10 Health Concerns Section Related Observation LastModified by Organization Detai ls LastModified Time None Recorded Concern Status LastModified by Organization Details LastModified Time None Recorded Advance Directives Directive None Recorded Payers Encounter Date Sequence Insurance Name Policy Number Policy Martini Covered Member ID Martini Member ID Guarantor Name 11/09/2022 1 [employer] () Chad Cruz [id number] Analy Cruz 03/12/2023 1 [employer] () Chad Cruz [id number] Analy Cruz 07/26/2023 1 [employer] () Chad Cruz [id number] Analy Cruz 06/10/2024 1 [employer] () Chad Cruz [id number] Analy Cruz 08/18/2024 1 [employer] () Chad Cruz [id number] Analy Cruz Notes Date Note Type Note Provider Name and Address Organization Details Recorded Time 3 text/html Here today for F/u of BP. Is doing ok with lisinopril. It is working. BP has been good away from here. No headaches or dizziness.No complaints. Got bug bites Bed bugs. 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 Pending f/u with doctor. Mayra Alexander MD [address], [place], [address], [facility] 11/09/2022 14:47:47 3 text/html Here today needing referrals. Has had problem with tartar build up. Started having gingivitis. Had a saliva test and showed several bacteria. Was told to see fitness worker sees senior publications specialist Wants to see fitness worker Dr. Bundy Wants a carotid doppler.Has osteoarthritis has right MTP. Wants to see noodle catalyst maker.Is on lisinopril and wants a paper script. Can get it at [facility] Mayra Alexander MD [address], [place], [address], [facility] 03/12/2023 20:17:19 3 text/html right hip pain , wakes her . DANIA Acevedo [address], [place], [address], [facility] 08/10/2023 16:49:32 4 text/html does have a tickle cough . DANIA Acevedo [address], [place], [address], [facility] 07/04/2024 10:43:27 4 text/html chest cold since Jul 31 . ,,no fever . DANIA Acevedo [address], [place], [address], [facility] 08/24/2024 16:19:34 OBGyn Episode No OBEpisode recorded.
--- OUTSIDE RECORDS SUMMARY | 2024-11-10 06:43 | XMS_ITS | Clinical Summary ---
Author Organization [facility] Address [address] [place] [address] Care Team Providers Care Supervisor Pipeline Maintenance Name Role Phone González Clark MD Primary Care Provider [phone] Allergies Active Allergy Reactions Criticality Noted Date Comments Codeine Rash High 12/19/2023 Medications celecoxib (CELEBREX) 200 MG capsule 4 Active Cetirizine HCl 10 MG Cap Take by mouth Active vitamin D2, ergocalciferol, (DRISDOL) 1.25 mg capsule Take 1 capsule (1.25 mg total) by mouth once a week. 4 Active Flecainide Acetate 150 MG Tab Take 1 tablet by mouth 2 (two) times daily. 4 Active NURTEC 75 MG disintegrating tablet Active estrogens, conjugated,-methylT ESTOSTERone (COVARYX) 1.25-2.5 mg tablet 4 Active progesterone (PROMETRIUM) 100 MG capsule Take 1 capsule (100 mg total) by mouth daily. 4 Active minoxidil (LONITEN) 2.5 MG tablet TAKE 2 TABLETS BY MOUTH ONCE DAILY IN THE MORNING 4 Active metoprolol tartrate (LOPRESSOR) 25 MG tablet Take 0.5 tablets (12.5 mg total) by mouth. 4 Active losartan-hydroCHLOR Othiazide (HYZAAR) 50-12.5 MG tablet TAKE 1 TABLET BY MOUTH EVERY MORNING FOR HIGH BLOOD PRESSURE 4 Active Active Problems Problem Noted Date Diagnosed Date SI joint arthritis 07/06/2024 Lateral epicondylitis 02/04/2024 Osteoarthrosis 02/04/2024 Contact dermatitis 12/23/2023 Lumbar radiculopathy 12/19/2023 Hip injury 07/25/2023 Diabetes mellitus ([facility]) 05/08/2023 Arthritis of first metatarso phalangeal (MTP) joint of right foot 03/12/2023 Multiple joint pain 11/09/2022 Essential hypertension 10/17/2022 Ventricular ectopy 10/14/2022 Acquired hallux rigidus of right foot 04/26/2022 Osteoarthritis of fingers of both hands 04/26/20 Pain in both hands 04/26/2022 Macrocytic anemia 04/24/2022 Eczema 04/02/2017 Encounters Date Type Department Care Team Description 09/11/2024 3:20 PM ECDIS N NAVIGATION OPERATOR - 09/11/2024 3:40 PM ECDIS N NAVIGATION OPERATOR Surgery [facility] [place] [place] [address] [id number] Savannah Maravilla MD SI JOINT STEROID WITH C-ARM 09/11/2024 2:23 PM ECDIS N NAVIGATION OPERATOR - 09/11/2024 3:10 PM ECDIS N NAVIGATION OPERATOR Hospital Encounter [facility] [place] [address] [id number] Savannah Maravilla MD Discharge Disposition: Home or Self Care (Routine Discharge) 09/11/2024 Travel from Last 3 Months Family History Relation Status Comments Father Mother Alive Social History Tobacco Use Types Packs/Day Years Used Date Smoking Tobacco: Former Cigarettes Smokeless Tobacco: Never Tobacco Cessation:Counseling Given: Not Answered Alcohol Use Standard Drinks/Week Comments Yes 0 (1 standard drink = 0.6 oz pur e alcohol) social Comments No Sex and Gender Information Value Date Recorded Sex Assigned at Female 09/11/2024 2:22 PM ECDIS N NAVIGATION OPERATOR Legal Sex Female 8:20 PM CDT Gender Identity Not on file Sexual Orientation Not on file Last Filed Vital Signs Vital Sign Reading Time Taken Comments Blood Pressure 134/82 09/11/2024 3:04 PM ECDIS N NAVIGATION OPERATOR Pulse 64 09/11/2024 3:04 PM ECDIS N NAVIGATION OPERATOR Temperature 36.2 C (97.1 F) 09/11/2024 2:46 PM ECDIS N NAVIGATION OPERATOR Respiratory Rate 18 09/11/2024 3:04 PM ECDIS N NAVIGATION OPERATOR Oxygen Saturation 98% 09/11/2024 3:04 PM ECDIS N NAVIGATION OPERATOR Inhaled Oxygen Concentration - - Weight 76.7 kg (169 lb) 09/11/2024 2:46 PM ECDIS N NAVIGATION OPERATOR Height 167.6 cm (5' 6 ) 09/11/2024 2:46 PM ECDIS N NAVIGATION OPERATOR Body Mass Index 27.28 09/11/2024 2:46 PM ECDIS N NAVIGATION OPERATOR Plan of Treatment Health Maintenance Due Date Last Done Comments Cervical Cancer Screening Pa p Smear (Age 30 to 64) Every 3 Years 1972 Colorectal Cancer Screening Colonoscopy (10 Years) 1972 Kidney Health Evaluation 1972 Hemoglobin A1C 1972 Lipid Panel 1972 Annual Physical 01/30/1975 Pneumococcal Vaccine: Pediatrics (0 to 5 Years) and At-Risk Patients (6 to 64 Years) (1 of 2 - PCV) 01/30/1978 Diabetes: Retinopathy Eye Exam 01/30/1990 Hepatitis C 01/30/1990 DTaP, Tdap and Td Vaccines ( 1 - Tdap) 01/30/1991 Hepatitis B Vaccines (1 of 3 - 19+ 3-dose series) 01/30/1991 Cervical Cancer Screening Pa p with HPV Testing (Age 30 to 64) Every 5 Years 01/30/2002 Cervical Cancer Screening wi HPV 01/30/2002 Mammogram Screening 2012 Zoster Vaccines (1 of 2) 01/30/2022 COVID-19 Vaccine (4 - 2023-2 5 season) 2024 06/28/2021, 11/21/2020, 10/31/2020 Influenza Adult (#1) 2024 07/06/2020, 08/20/2019 PHQ-2 (Physician [place]) 08/19/2024 Meningococcal B Vaccine Aged Out No l onger eligible based on patient's age to complete this topic Meningococcal Vaccine Aged Out No gene nida eligible based on patient's age to complete this topic RSV Immunizations Under 20 Months Aged Out No longer eligible b ased on patient's age to complete this topic Procedures Procedure Name Priority Date/Time Associated Diagnosis Comments INJECTION FACET/SI JOINT STEROID WITH C-ARM 09/11/2024 2:57 PM ECDIS N NAVIGATION OPERATOR SI joint arthritis XR PAIN CLINIC C-ARM Today 09/11/2024 2:38 PM ECDIS N NAVIGATION OPERATOR from Last 3 Months Results * XR PAIN CLINIC C-ARM (09/11/2024 2:38 PM ECDIS N NAVIGATION OPERATOR) Narrative Radiology, Technologist - 09/11/2024 2:38 PM ECDIS N NAVIGATION OPERATOR This report does not contain a radiologist's interpretation. Please review associated procedure and/or operative report. Savannah Maravilla MD GENERAL IMAGING Final Result from Last [address] [phone] Care Teams Supervisor Pipeline Maintenance Relationship Specialty Start Date End Date González Clark MD [address] [place] [phone] PCP - General 02/04/24
--- OUTSIDE RECORDS SUMMARY | 2024-11-10 06:43 | XMS_ITS | Clinical Summary ---
Author Organization [facility] Address [address] [place] [address] Care Team Providers Care Core Drill Operator Helper Name Role Phone Crescencio Victoria MD Unavailable [phone] Hima Silver Primary Care Provider + Allergies Active Allergy Reactions Criticality Noted Date [...] TABLET TWICE A DAY 180 tablet 3 11/11/19 24 025 Discontinued metoprolol tartrate (LOPRESSOR) 25 mg [...] (12/08/2018): Added automatically from request for surgery [id number] Encounters Date Type Department Care Team Description 10/12/2024 10:00 AM DIRECTOR OF MUSIC THERAPY Office Visit [facility] [address] [facility] [address] [place] [address] Varsha Swenson NP Cardiac arrhythmia, unspecified cardiac arrhythmia type (Primary Dx) from Last 3 Months Surgical History Surgery Date Site/Laterality Comments SECTION, CLASSIC x 1 KNEE SURGERY Left x 7 Medical History Medical History Date Comments [place] (ventricular tachycardia) (HCC) Ventricular tachycardia (HCC) Family History Medical History Relation Name Comments Other Father 2 Unknown; Cause of : Unknown Other Mother 2 Alive and well; Relation Name Status Comments Father 1 (Age 76) Father 2 Mother 1 Alive Mother 2 Social History Tobacco Use Types Packs/Day Years Used Date Smoking Tobacco: Light Smoker Smokeless Tobacco: Never Alcohol Use Standard Drinks/Week Comments Yes 0 (1 standard drink = 0.6 oz pur e alcohol) occasionally Comments No Sex and Gender Information Value Date Recorded Sex Assigned at Not on file Legal Sex Female 1:09 PM DIRECTOR OF MUSIC THERAPY Gender Identity Not on file Sexual Orientation Not on file Obstetrics History Last Filed Vital Signs Vital Sign Reading Time Taken Comments Blood Pressure 128/92 10/12/2024 10:07 AM DIRECTOR OF MUSIC THERAPY Pulse 76 10/12/2024 10:07 AM DIRECTOR OF MUSIC THERAPY Temperature 36.7 C (98.1 F) 11/04/2018 8:52 AM CDT Respiratory Rate 16 10/31/2021 11:18 AM CDT Oxygen Saturation 100% 04/03/2024 10:05 AM CDT Inhaled Oxygen Concentration - - Weight 82.1 kg (181 lb) 10/12/2024 10:07 AM DIRECTOR OF MUSIC THERAPY Height 167.6 cm (5' 6 ) 10/12/2024 10:07 AM DIRECTOR OF MUSIC THERAPY Body Mass Index 29.21 10/12/2024 10:07 AM DIRECTOR OF MUSIC THERAPY Plan of Treatment Health Maintenance Due Date Last Done Comments Cervical Cancer Screening 1972 Colon Cancer Screening-Colonoscopy 1972 Depression Screening 1972 Hepatitis C Screening 1972 DTaP/Tdap/Td Vaccine (1 - Tdap) 01/30/1983 Hepatitis B Screening 01/30/1990 Regular Well Visit/Exam 18-64 01/30/1990 Pneumococcal vaccine <65 (1 of 2 - PCV) 01/30/1991 Breast Cancer Screening-Mammogram 10/08/2015 015, 09/09/2013 Zoster Vaccine (1 of 2) 01/30/2022 Influenza Vaccine (#1) 2024 07/06/2020, 2019 Procedures Procedure Name Priority Date/Time Associated Diagnosis Comments ECG 12-LEAD Routine 10/12/2024 10:08 AM DIRECTOR OF MUSIC THERAPY Cardiac arrhythmia, unspecified cardiac arrhythmia type DIGITAL MAMMOGRAPHY Routine 10/08/2014 1 2:00 AM DIRECTOR OF MUSIC THERAPY from Last 3 Months or Most Recently Relevant to Health Maintenance Results * ECG 12 lead (10/12/2024 10:08 AM DIRECTOR OF MUSIC THERAPY) Varsha Swenson NP ECG ORDERABLES Final Resu lt * DIGITAL MAMMOGRAPHY (10/08/2014 12:00 AM DIRECTOR OF MUSIC THERAPY) Anatomical Region Laterality Modality Breast Mammography 10/08/2014 Narrative 10/08/2014 10:19 AM DIRECTOR OF MUSIC THERAPY [place], [place] LEON CRUZ ANC ENCOUNTER: [id number] BIRTHDATE: 1970 ORDERING PHYSICIAN: Patito Hernandez DO ATTENDING PHYSICIAN: Patito Hernandez DO TECHNOLOGIST: Dayana Marcum EXAM DATE: 10/08/2014 08:22 X-RAY#: [id number] DEPARTMENT OF RADIOLOGY MAMMOGRAPHY REPORT EXAM DESCRIPTION [...] Negative. The above report was dictated at [facility]. Authenticated by Edwar You MD On 10/08/2014 11:59 MD MAXWELL Morillo:devang Doc #: [id number] Dictation CC: Patito Hernandez DO Procedure Note Provider, MD Michael - 12/21/2016 [place], [place] LEON CRUZ ENCOUNTER: [id number] BIRTHDATE: 1970 ORDERING PHYSICIAN: Patito Hernandez DO ATTENDING PHYSICIAN: Patito Hernandez DO TECHNOLOGIST: Dayana Marcum EXAM DATE: 10/08/2014 08:22 X-RAY#: [id number] DEPARTMENT OF RADIOLOGY MAMMOGRAPHY REPORT EXAM DESCRIPTION [...] Negative. The above report was dictated at [facility]. Authenticated by Edwar You MD On 10/08/2014 11:59 MD MAXWELL Morillo:devang Doc #: [id number] Dictation CC: Patito Hernandez DO Historical Provider MD DIANA MAMMO PROCEDURES Xochitl l Result from Last 3 Months or Most Recently Relevant to Health Maintenance Insurance [facility] Member Subscriber Plan / Payer ( fective 2018-Present) Name:Leon Cruz Relation to Subscriber:Self Name:Leon Cruz Payer ID:[id number] (NAIC) Group ID:Not on file Type:[email or web address] Address: [place] [address] [place] [address] Member Subscriber Plan / Payer ( fective 2018-Present) Name:Leon Cruz Relation to Subscriber:Self Name:Leon Cruz Payer ID:[id number] (NAIC) Group ID:Not on file Type:[email or web address] Address: [place] [phone] [facility] Advance Directives For more information, please contact: [phone] * Full Code (Latest Code Status on File) Date Activated Date Inactivated Comments 11/01/2018 9:32 PM 11/04/2018 3:28 PM Care Teams Core Drill Operator Helper Relationship Specialty Start Date End Date Hima Silver PA [facility] [place] [address] PCP - General Internal Medicine 02/11/24 Crescencio Victoria MD Consulting Physician Cardiology 11/04/18
[2024-11-11 01:54] LABS: DHEA-Sulfate 48 mcg/dL (5-167); Prolactin 22.5 ng/mL
[2024-11-11 11:28] LABS: Insulin Level Total 5.2 uIU/mL
[2024-11-15 09:09] LABS: Testosterone Free 1.1 pg/mL (0.1-6.4); Testosterone Total 5 ng/dL (2-45)
== END 2024-11-10 06:40 | disposition home or self-care (01) ==
LOC: ANHLAB 06:41
PROVIDERS: PCP Physician Assistant; Visit Provider Obstetrics & Gynecology
DX: L67.8 Other hair color and hair shaft abnormalities (principal); R63.5 Abnormal weight gain; N64.52 Nipple discharge
CPT/HCPCS: 36415; 82627; 83036; 83525; 84146; 84402; 84403

== ENCOUNTER 2025-03-20 07:29 | Outpatient (CLI) | payer OTHER, SELFPAY ==
--- OUTSIDE RECORDS SUMMARY | 2025-03-20 07:32 | XMS_ITS | Encounter Summary ---
Author Organization [facility] Address [address] [place] [address] Care Team Providers Care Cake Former Name Role Phone Mayra Felix MD Primary Care Provider [phone] González Clark MD Primary Care Provider [phone] Encounter Details Date Type Department Care Team (Late st Contact Info) Description 01/20/2024 Privarist Message Enc [facility] [place] [address] [phone] Savannah Maravilla MD Three [facility] [address] [place], [place] [phone] Lumbar injections from January 06. Social History Tobacco Use Types Packs/Day Years Used Date Smoking Tobacco: Never Smokeless Tobacco: Never Alcohol Use Standard Drinks/Week Comments Yes 0 (1 standard drink = 0.6 oz pur e alcohol) social Comments No Sex and Gender Information Value Date Recorded Sex Assigned at Female 09/11/2024 2:22 PM TRAFFIC SIGNAL SUPERVISOR MAINTENANCE Legal Sex Female 8:20 PM CDT Gender Identity Not on file Sexual Orientation Not on file documented as of this encounter Plan of Treatment Upcoming Encounters Date Type Department Care Team (Latest Contact Info) Description 04/21/2025 9:20 AM CDT Hospital Encounter [facility] [place] [address] [id number] Savannah Maravilla MD Three [facility] [address] [place] [address] 04/21/2025 9:20 AM CDT - 04/21/2025 9:40 AM CDT Surgery [facility] [place] [address] [id number] Savannah Maravilla MD Three [facility] [address] [place] [address] BLOCK SACROILIAC JOINT Scheduled Procedures Name Priority Associated Diagnoses Date/Ti me BLOCK SACROILIAC JOINT SI joint arthritis 04/21/2025 9:20 AM CDT documented as of this encounter Visit Diagnoses Not on filedocumented in this encounter Care Teams Cake Former Relationship Specialty Start Date End Date Mayra Felix MD [address] [place] [address] PCP - General 12/19/23 02/03/24 González Clark MD [address] [place] [address] PCP - General 02/04/24 documented as of this encounter
--- OUTSIDE RECORDS SUMMARY | 2025-03-20 07:32 | XMS_ITS | Continuity of Care Document ---
Author Name [facility] Organization [facility] Care Team Providers Care Warehouse Delivery Driver Name Role Phone [facility] Unavailable Unavailable Encounters Combined list of: 1) Encounters from [facility] facilities going backup to the last 18 months, not all [place] inpatient encounters are included; 2) Encounters from the Department of [facility] facilities going backup to 280 months. Location Location Details Encounter Type Encounter Number Reason For Visit Attending Provider ADM Date DC Date Status Disposition Source Ambulator y Pharmacy [facility] [id number] 12/10 Ambulat ory Pharmac y Procedures Combined list of: 1) Procedures from [facility] facilities going back up to thelast 18 months, not all NH non-surgical procedures are included; 2) All procedures from the Department of [facility] facilities. Procedure Procedure Type Code Date Perfomer Comments Sourc e No data available for this section Ambulatory P harmacy Assessment and Plan Combined list of future care activities from [facility] facilities (e.g., assessment and plan notes, appointments, orders, and referrals). Additional future care activities may be listed in the Plan of Care section. Result Assessment and Plan Date Source Assessment and Plan No data available for this section 03/20/2025 Ambulatory Pharmacy Functional Status Combined list of recent functional and cognitive assessments recorded at [facility] Functional [place] Measurement (FIM) Scale: 1 = Total Assistance (Subject = 0% +), 2 = Maximal Assistance (Subject = 25% +), 3 = Moderate Assistance (Subject = 50% +), 4 = Minimal Assistance (Subject = 75% +), 5 = Supervision, 6 = Modified [place] (Device), 7 = Complete [place] (Timely, Safely). Assessment Date/Time Source Assessment Type Assessment Skill Assessment Score Assessment Details No data available for this section
--- OUTSIDE RECORDS SUMMARY | 2025-03-20 07:33 | XMS_ITS | Encounter Summary ---
Author Organization [facility] Address [address] [place] [address] Care Team Providers Care Fruit Or Nut Picker Name Role Phone González Clark MD Primary Care Provider [phone] Encounter Details Date Type Department Care Team (Late st Contact Info) Description 05/27/2024 Prep for Procedure [facility] [place] [address] [id number] Lea Cevallos, SWITCH MAKER [address] [phone] (Work) Social History Tobacco Use Types Packs/Day Years Used Date Smoking Tobacco: Former Cigarettes Smokeless Tobacco: Never Alcohol Use Standard Drinks/Week Comments Yes 0 (1 standard drink = 0.6 oz pur e alcohol) social Comments No Sex and Gender Information Value Date Recorded Sex Assigned at Female 09/11/2024 2:22 PM SECURITY ALARM TECHNICIAN Legal Sex Female 8:20 PM CDT Gender Identity Not on file Sexual Orientation Not on file documented as of this encounter Plan of Treatment Upcoming Encounters Date Type Department Care Team (Latest Contact Info) Description 04/21/2025 9:20 AM CDT Hospital Encounter [facility] Inter[facility] [place] [address] [id number] Savannah Maravilla MD Three [facility] [address] [place] [address] 04/21/2025 9:20 AM CDT - 04/21/2025 9:40 AM CDT Surgery [facility] Inter[facility] [place] [address] [id number] Savannah Maravilla MD Three [facility] [address] [place] [address] BLOCK SACROILIAC JOINT Scheduled Procedures Name Priority Associated Diagnoses Date/Ti me BLOCK SACROILIAC JOINT SI joint arthritis 04/21/2025 9:20 AM CDT documented as of this encounter Visit Diagnoses Not on filedocumented in this encounter Care Teams Fruit Or Nut Picker Relationship Specialty Start Date End Date González Clark MD [address] [place] [phone] PCP - General 02/04/24 documented as of this encounter
--- OUTSIDE RECORDS SUMMARY | 2025-03-20 07:33 | XMS_ITS | Encounter Summary ---
Author Organization [facility] Address [address] [place] [address] Care Team Providers Care Salad Bar Clerk Name Role Phone González Clark MD Primary Care Provider [phone] Encounter Details Date Type Department Care Team (Late st Contact Info) Description 07/08/2024 Home Environmental Systemst Message Enc [facility] [place] [address] [id number] Savannah Maravilla MD Three [address] [phone] Pain issues returned suddenly on left side; need help. Social History Tobacco Use Types Packs/Day Years Used Date Smoking Tobacco: Former Cigarettes Smokeless Tobacco: Never Alcohol Use Standard Drinks/Week Comments Yes 0 (1 standard drink = 0.6 oz pur e alcohol) social Comments No Sex and Gender Information Value Date Recorded Sex Assigned at Female 09/11/2024 2:22 PM CELL MANAGER Legal Sex Female 8:20 PM CDT Gender Identity Not on file Sexual Orientation Not on file documented as of this encounter Plan of Treatment Upcoming Encounters Date Type Department Care Team (Latest Contact Info) Description 04/21/2025 9:20 AM CDT Hospital Encounter [facility] [place] [address] [phone] Savannah Maravilla MD Three [facility] [address] [place] [phone] 04/21/2025 9:20 AM CDT - 04/21/2025 9:40 AM CDT Surgery [facility] Inter[facility] [place] [address] [phone] Savannah Maravilla MD Three [facility] [address] [place] [address] BLOCK SACROILIAC JOINT Scheduled Procedures Name Priority Associated Diagnoses Date/Ti me BLOCK SACROILIAC JOINT SI joint arthritis 04/21/2025 9:20 AM CDT documented as of this encounter Visit Diagnoses Not on filedocumented in this encounter Care Teams Salad Bar Clerk Relationship Specialty Start Date End Date González Clark MD [address] [place] [address] PCP - General 02/04/24 documented as of this encounter
--- OUTSIDE RECORDS SUMMARY | 2025-03-20 07:33 | XMS_ITS | Clinical Summary ---
Author Organization [facility] D Address [address] [place] [address] Care Team Providers Care Data Abstractor Name Role Phone Crescencio Victoria MD Unavailable [phone] Hima Silver Primary Care Provider + Allergies Active Allergy Reactions Criticality Noted Date Comments Codeine Rash High Medications ergocalciferol (VITAMIN D) 50,000 unit capsule TAKE 1 CAPSULE BY MOUTH ONCE A WEEK 04/25/2021 Active metoprolol XL (TOPROL-XL) 25 mg extended release tablet Take 0.5 tablets (12.5 mg total) by mouth daily 30 tablet 5 10/12/2024 Active flecainide (TAMBOCOR) 150 mg tablet TAKE 1 TABLET TWICE A DAY 180 tablet 3 11/04/2024 Active Active Problems Problem Noted Date Diagnosed Date Ventricular ectopy 12/11/2023 Resolved Problems Problem Noted Date Diagnosed Date Resolved Date VT (ventricular tachycardia) 12/08/2018 12/11/2023 Overview (12/08/2018): Added automatically from request for surgery Surgical History Surgery Date Site/Laterality Comments SECTION, CLASSIC x 1 KNEE SURGERY Left x 7 Medical History Medical History Date Comments VT (ventricular tachycardia) Ventricular tachycardia (HCC) Family History Medical History [...] on file Legal Sex Female 1:09 PM MAILROOM ASSISTANT Gender Identity Not on file Sexual Orientation Not on file Obstetrics History Last Filed Vital Signs Vital Sign Reading Time Taken Comments Blood Pressure 128/92 10/12/2024 10:07 AM MAILROOM ASSISTANT Pulse 76 10/12/2024 10:07 AM MAILROOM ASSISTANT Temperature 36.7 C (98.1 F) 11/04/2018 8:52 AM CDT Respiratory Rate 16 10/31/2021 11:18 AM CDT Oxygen Saturation 100% 04/03/2024 10:05 AM CDT Inhaled Oxygen Concentration - - Weight 82.1 kg (181 lb) 10/12/2024 10:07 AM MAILROOM ASSISTANT Height 167.6 cm (5' 6) 10/12/2024 10:07 AM MAILROOM ASSISTANT Body Mass Index 29.21 10/12/2024 10:07 AM MAILROOM ASSISTANT Plan of Treatment Health Maintenance Due Date [...] (1 of 2) 01/30/2022 Influenza Vaccine (#1) 2025 07/06/2020, 2019 Procedures Procedure Name Priority Date/Time Associated Diagnosis Comments DIGITAL MAMMOGRAPHY Routine 10/08/2014 1 2:00 AM MAILROOM ASSISTANT from Last 3 Months or Most Recently Relevant to Health Maintenance Results * DIGITAL MAMMOGRAPHY (10/08/2014 12:00 AM MAILROOM ASSISTANT) Anatomical Region Laterality Modality Breast Mammography 10/08/2014 Narrative 10/08/2014 10:19 AM MAILROOM ASSISTANT [place], [place] LEON CRUZ ANC ENCOUNTER: [id number] BIRTHDATE: 1970 ORDERING PHYSICIAN: Patito Hernandez DO ATTENDING PHYSICIAN: Patito Hernandez DO TECHNOLOGIST: Dayana Marcum EXAM DATE: 10/08/2014 08:22 X-RAY#: [id number] DEPARTMENT OF RADIOLOGY MAMMOGRAPHY REPORT EXAM DESCRIPTION [...] 11:59 Edwar You MD TJE:cjs Doc #: [id number] Dictation CC: Patito Hernandez DO Procedure Note Provider, MD Michael - 12/21/2016 [place], [place] LEON CRUZ ENCOUNTER: [id number] BIRTHDATE: 1970 ORDERING PHYSICIAN: Patito Hernandez DO ATTENDING PHYSICIAN: Patito Hernandez DO TECHNOLOGIST: Dayana Marcum EXAM DATE: 10/08/2014 08:22 X-RAY#: [id number] DEPARTMENT OF RADIOLOGY MAMMOGRAPHY REPORT EXAM DESCRIPTION [...] 11:59 Edwar You MD TJE:cjs Doc #: [id number] Dictation CC: Patito Hernandez DO Historical Provider MD DIANA MAMMO PROCEDURES Xochitl l Result from Last 3 Months or Most Recently Relevant to Health Maintenance Insurance [employer] [facility] Advance Directives For more information, please contact: [phone] * Full Code (Latest Code Status on File) Date Activated Date Inactivated Comments 11/01/2018 9:32 PM 11/04/2018 3:28 PM Care Teams Data Abstractor Relationship Specialty Start Date End Date Hima Silver PA [address] [place] [address] [place] [address] PCP - General Internal Medicine 02/11/24 Crescencio Victoria MD Consulting Physician Cardiology 11/04/18
--- OUTSIDE RECORDS SUMMARY | 2025-03-20 07:33 | XMS_ITS | Referral Summary ---
Author Organization [facility] D Address [address] [place] [address] Care Team Providers Care Manufacturing Scheduler Name Role Phone Crescencio Victoria MD Unavailable [phone] Hima Silver Primary Care Provider + Allergies [...] on file Legal Sex Female 1:09 PM FLASH DEVELOPER Gender Identity Not on file Sexual Orientation Not on file Last Filed Vital Signs Vital Sign Reading Time Taken Comments Blood Pressure 128/92 10/12/2024 10:07 AM FLASH DEVELOPER Pulse 76 10/12/2024 10:07 AM FLASH DEVELOPER Temperature 36.7 C (98.1 F) 11/04/2018 8:52 AM CDT Respiratory Rate 16 10/31/2021 11:18 AM CDT Oxygen Saturation 100% 04/03/2024 10:05 AM CDT Inhaled Oxygen Concentration - - Weight 82.1 kg (181 lb) 10/12/2024 10:07 AM FLASH DEVELOPER Height 167.6 cm (5' 6) 10/12/2024 10:07 AM FLASH DEVELOPER Body Mass Index 29.21 10/12/2024 10:07 AM FLASH DEVELOPER Plan of Treatment Not on file Procedures Procedure Name Priority Date/Time Associated Diagnosis Comments DIGITAL MAMMOGRAPHY Routine 10/08/2014 1 2:00 AM FLASH DEVELOPER from Last 3 Months or Most Recently Relevant to Health Maintenance Results * DIGITAL MAMMOGRAPHY (10/08/2014 12:00 AM FLASH DEVELOPER) Anatomical Region Laterality Modality Breast Mammography 10/08/2014 Narrative 10/08/2014 10:19 AM FLASH DEVELOPER [place], [place] LEON CRUZ ANC ENCOUNTER: [id number] BIRTHDATE: 1970 ORDERING PHYSICIAN: Patito Hernandez DO ATTENDING PHYSICIAN: Patito Hernandez DO TECHNOLOGIST: Dayana Marcum EXAM DATE: 10/08/2014 08:22 X-RAY#: [id number] DEPARTMENT OF RADIOLOGY MAMMOGRAPHY REPORT EXAM DESCRIPTION [...] Negative. The above report was dictated at [facility]. Authenticated by Edwar You MD On 10/08/2014 11:59 MD MAXWELL Morillo:devang Doc #: [id number] Dictation CC: Patito Hernandez DO Procedure Note Provider, MD Michael - 12/21/2016 [place], [place] LEON CRUZ ENCOUNTER: [id number] BIRTHDATE: 1970 ORDERING PHYSICIAN: Patito Hernandez DO ATTENDING PHYSICIAN: Patito Hernandez DO TECHNOLOGIST: Dayana Marcum EXAM DATE: 10/08/2014 08:22 X-RAY#: [id number] DEPARTMENT OF RADIOLOGY MAMMOGRAPHY REPORT EXAM DESCRIPTION [...] Negative. The above report was dictated at [facility]. Authenticated by Edwar You MD On 10/08/2014 11:59 MD MAXWELL Morillo:devang Doc #: [id number] Dictation CC: Patito Hernandez DO Historical Provider MD DIANA MAMMO PROCEDURES Xochitl l Result from Last 3 Months or Most Recently Relevant to Health Maintenance Insurance [facility] [place] [address] [place] [address] Advance Directives For more information, please contact: [phone] * Full Code (Latest Code Status on File) Date Activated Date Inactivated Comments 11/01/2018 9:32 PM 11/04/2018 3:28 PM Care Teams Manufacturing Scheduler Relationship Specialty Start Date End Date Hima Silver PA [facility] [place] [address] PCP - General Internal Medicine 02/11/24 Crescencio Victoria MD Consulting Physician Cardiology 11/04/18
--- OUTSIDE RECORDS SUMMARY | 2025-03-20 07:33 | XMS_ITS | Clinical Summary ---
Author Organization [facility] Address [address] [place] [address] Care Team Providers Care Global Account Manager Name Role Phone González Clark MD Primary Care Provider [phone] Allergies Active Allergy Reactions Criticality Noted Date [...] MORNING FOR HIGH BLOOD PRESSURE 4 Active pregabalin (LYRICA) 50 MG capsule 5 Active Active Problems Problem Noted Date Diagnosed Date SI joint arthritis 07/06/2024 Lateral epicondylitis 02/04/2024 Osteoarthrosis 02/04/2024 Contact dermatitis 12/23/2023 Lumbar radiculopathy 12/19/2023 Hip injury 07/25/2023 Diabetes mellitus ([facility]) 05/08/2023 Arthritis of first metatarso phalangeal (MTP) joint of right foot 03/12/2023 Multiple joint pain 11/09/2022 Essential hypertension 10/17/2022 Ventricular ectopy 10/14/2022 Acquired hallux rigidus of right foot 04/26/2022 Osteoarthritis of fingers of both hands 04/26/20 22 Pain in both hands 04/26/2022 Macrocytic anemia 04/24/2022 Eczema 04/02/2017 Encounters Date Type Department Care Team Description 12/23/2024 9:00 AM CDT - 12/23/2024 9:20 AM CDT Surgery [facility] [place] [place] [address] [id number] Savannah Maravilla MD BLOCK SACROILIAC JOINT 12/23/2024 8:13 AM CDT - 12/23/2024 9:28 AM CDT Hospital Encounter [facility] [place] [address] [id number] Savannah Maravilla MD Discharge Disposition: Home or Self Care (Routine Discharge) 12/23/2024 Travel from Last 3 Months Family History [...] Sex Assigned at Female 09/11/2024 2:22 PM SYS DIR Legal Sex Female 8:20 PM CDT Gender Identity Not on file Sexual Orientation Not on file Last Filed Vital Signs Vital Sign Reading Time Taken Comments Blood Pressure 132/78 12/23/2024 9:10 AM CDT Pulse 56 12/23/2024 9:10 AM CDT Temperature 36.6 C (97.8 F) 12/23/2024 8:38 AM CDT Respiratory Rate 18 12/23/2024 9:10 AM CDT Oxygen Saturation 100% 12/23/2024 9:10 AM CDT Inhaled Oxygen Concentration - - Weight 82.6 kg (182 lb) 12/23/2024 8:38 AM CDT Height 167.6 cm (5' 6) 12/23/2024 8:38 AM CDT Body Mass Index 29.38 12/23/2024 8:38 AM CDT Plan of Treatment Upcoming Encounters Date Type Department Care Team (Latest Contact Info) Description 04/21/2025 9:20 AM CDT Hospital Encounter [facility] [place] [place] [address] [phone] Savannah Maravilla MD [address] [phone] 04/21/2025 9:20 AM CDT - 04/21/2025 9:40 AM CDT Surgery [facility] [place] [address] [id number] Savannah Maravilla MD [address] [address] BLOCK SACROILIAC JOINT Scheduled Procedures Name Priority Associated Diagnoses Date/Ti me BLOCK SACROILIAC JOINT SI joint arthritis 04/21/2025 9:20 AM CDT Health Maintenance Due Date Last Done Comments Cervical Cancer Screening Pa p Smear (Age 30 to 64) Every 3 Years 1972 Colorectal Cancer Screening Colonoscopy (10 Years) 1972 Kidney Health Evaluation 1972 Hemoglobin A1C 1972 Lipid Panel 1972 Annual Physical 01/30/1975 Diabetes: Retinopathy Eye Exam 01/30/1990 Hepatitis C 01/30/1990 DTaP, Tdap and Td Vaccines ( 1 - Tdap) 01/30/1991 Hepatitis B Vaccines (1 of 3 - 19+ 3-dose series) 01/30/1991 Pneumococcal Vaccine: 50+ Years (1 of 2 - PCV) 01/30/1991 Cervical Cancer Screening Pa p with HPV Testing (Age 30 to 64) Every 5 Years 01/30/2002 Cervical Cancer Screening wi th HPV 01/30/2002 Mammogram Screening 2012 Zoster Vaccines (1 of 2) 01/30/2022 COVID-19 Vaccine (4 - 2023-2 5 season) 2024 06/28/2021, 11/21/2020, 10/31/2020 PHQ-2 (Physician Iliamna) 08/19/2024 Meningococcal B Vaccine Aged Out No l onger eligible based on patient's age to complete this topic Meningococcal Vaccine Aged Out No gnee nida eligible based on patient's age to complete this topic RSV Immunizations Under 20 Months Aged Out No longer eligible b ased on patient's age to complete this topic Goals Goal Patient Goal Type Associated Problems Recent Progress Patient-Stated? Author Autogenera mariza Goal Care Plan Autogenerated Problem No Rajni, Sheri V Procedures Procedure Name Priority Date/Time Associated Diagnosis Comments INJECTION,SACROILIA C JOINT 12/23/2024 9:00 AM CDT SI joint arthritis XR PAIN CLINIC C-ARM Today 12/23/2024 8:27 AM CDT from Last 3 Months Results * XR PAIN CLINIC C-ARM (12/23/2024 8:27 AM CDT) Narrative Radiology, Technologist - 12/23/2024 8:27 AM CDT This report does not contain a radiologist's interpretation. Please review associated procedure and/or operative report. Savannah Maravilla MD GENERAL IMAGING Final Result from Last 3 Months Additional Health Concerns Active Problems Noted Date Diagnosed Date Autogenerated Problem 02/25/[address] [place] [address] Care Teams Global Account Manager Relationship Specialty Start Date End Date González Clark MD [address] [place] [phone] PCP - General 02/04/24
--- OUTSIDE RECORDS SUMMARY | 2025-03-20 07:33 | XMS_ITS | Encounter Summary ---
Author Organization [facility] Address [address] [place] [address] Care Team Providers Care Separating Machine Operator Name Role Phone González Clark MD Primary Care Provider [phone] Encounter Details Date Type Department Care Team (Late st Contact Info) Description 05/27/[address] 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 [place] [address] [phone] Savannah Maravilla MD Three [facility] [address] [place] [phone] 04/21/2025 9:20 AM CDT - 04/21/2025 9:[address] [facility] Inter[facility] [place] [address] [phone] Savannah Maravilla MD Three [facility] [address] [place] [address] BLOCK SACROILIAC JOINT Scheduled Procedures Name Priority Associated Diagnoses Date/Ti me BLOCK SACROILIAC JOINT SI joint arthritis 04/21/2025 9:20 AM CDT documented as of this encounter Visit Diagnoses Not on filedocumented in this encounter Care Teams Separating Machine Operator Relationship Specialty Start Date End Date González Clark MD [address] [place] [phone] PCP - General 02/04/24 documented as of this encounter
[2025-03-20 09:14] LABS: Anion Gap 5 mmol/L (4-12); Blood Urea Nitrogen 18 mg/dL (7-17); Calcium 8.8 mg/dL (8.4-10.2); Carbon Dioxide 28 mmol/L (22-30); Chloride 107 mmol/L (98-107); Estimated Glomerular Filt Rate > 60; Glucose 88 mg/dL (65-110); Potassium 4.2 mmol/L (3.4-5.0); Sodium 140 mmol/L (137-145)
== END 2025-03-20 07:30 | disposition home or self-care (01) ==
LOC: ANHLAB 07:31
PROVIDERS: PCP Family Medicine; Visit Provider Nurse Anesthetist, Certified Registered
DX: Z01.818 Encounter for other preprocedural examination (principal)
CPT/HCPCS: 36415; 80048

== ENCOUNTER 2025-07-02 07:40 | Outpatient (CLI) | payer OTHER, SELFPAY ==
--- NOTE | 2025-07-02 | ECHO_ITS ---
Patient Info Name: Analy Cruz Age: 55 years : 1970 Gender: Female Ht: 66 in Wt: 170 lbs BSA: 1.91 m2 HR: 68 bpm BP: 140 / 91 mmHg Heart Rhythm: Sinus Rhythm Technical Quality: Good Exam Date: 07/02/2025 8:08 AM Patient Status: O Admit Date: 07/02/2025 Exam Type: CA echo doppler color flow Complete two-dimensional, color flow and Doppler transthoracic echocardiogram is performed. Fire Fighters Dispatcher: Leatha Gorman Summary 1. Complete two-dimensional, color flow and Doppler transthoracic echocardiogram is performed. 2. Normal left ventricular size thickness systolic and diastolic function. 3. Very small amount of mitral and tricuspid valve regurgitation. 4. Sinus rhythm. Left Ventricle Left ventricular chamber dimension is normal. Left ventricular systolic function is normal, estimated at 60-65. The left ventricular diastolic function is normal. Right Ventricle Right ventricular chamber dimension is normal. Left Atria Left atrial chamber dimension is normal. Right Atria Right atrial chamber dimension is normal. Aortic Valve The aortic valve is normal. Pulmonic Valve The pulmonic valve is normal. Mitral Valve The mitral valve has normal leaflets. There is mild mitral valve regurgitation. The mitral valve annulus is mildly calcified. Tricuspid Valve The tricuspid valve leaflets are normal. There is trace tricuspid valve regurgitation. Pericardium/Pleural The pericardium appears normal. Aorta The aortic root size at the sinus of Valsalva is normal. Left Ventricular Outflow Tract Name Value Normal LVOT 2D LVOT Diameter 2.0 cm LVOT Doppler LVOT Peak Velocity 103 cm/s LVOT Peak Gradient 4 mmHg LVOT Mean Gradient 2 mmHg LVOT VTI 23 cm LVOT Stroke Volume 72 ml LVOT CO 4.9 l/min LVOT CI 2.6 l/min/m2 Pulmonic Valve Name Value Normal RVOT Doppler RVOT Peak Velocity 58 cm/s RVOT Peak Gradient 1 mmHg PV Doppler PV Peak Velocity 78 cm/s PV Peak Gradient 2 mmHg Mitral Valve Name Value Normal MV Diastolic Function MV E Peak Velocity 92 cm/s MV A Peak Velocity 84 cm/s MV E/A 1.1 MV Decel Time (PW) 202 ms MV Annular TDI MV E/e' (Septal) 17.9 MV E/e' (Lateral) 7.5 MV E/e' (Average) 12.7 Tricuspid Valve Name Value Normal TV Regurgitation Doppler TR Peak Velocity 282 cm/s TR Peak Gradient 32 mmHg Aortic Valve Name Value Normal AV Doppler AV Peak Velocity 140 cm/s AV Peak Gradient 8 mmHg AV Area (Cont Eq Vincent) 2.3 cm2 AV DI (Vincent) 0.74 AV Regurgitation 2D LVOT Area 3.2 cm2 Ventricles Name Value Normal LV Dimensions 2D/MM IVS Diastolic Thickness (2D) 1.1 cm 0.6-1.0 LVID Diastole (2D) 4.4 cm 3.8-5.2 LVIW Diastolic Thickness (2D) 0.9 cm 0.6-0.9 LVID Systole (2D) 2.7 cm 2.2-3.5 LVOT Diameter 2.0 cm LV Mass (2D Cubed) 146.73 g 67.00-162.00 LV Mass Index (2D Cubed) 77 g/m2 43-95 Relative Wall Thickness (2D) 0.41 <=0.42 LV Fractional Shortening/Ejection Fraction 2D/MM LV Fractional Shortening (2D) 38 % 27-45 LV EF (2D Teichholz) 68 % LV Diastolic Volume (4C MOD) 94 ml LV EF (4C MOD) 66 % LV Diastolic Volume (2C MOD) 88 ml LV EF (2C MOD) 62 % LV Diastolic Volume (BP MOD) 93 ml 46-106 LV Diastolic Volume Index (BP MOD) 49 ml/m2 29-61 LV Systolic Volume (BP MOD) 34 ml 14-42 LV Systolic Volume Index (BP MOD) 18 ml/m2 8-24 LV EF (BP MOD) 64 % 54-74 LV Diastolic Length (4C) 7.4 cm LV Systolic Length (4C) 6.0 cm LV Stroke Volume (4C MOD) 62 ml Atria Name Value Normal LA Dimensions LA Volume (4C A-L) 52 ml LA Volume (BP A-L) 57 ml RA Dimensions RA Systolic Major Willoughby Length (4C) 4.4 cm 2.2-2.8 RA Area (4C) 13.8 cm2 <=18.0 Report Signatures
--- OUTSIDE RECORDS SUMMARY | 2025-07-02 07:43 | XMS_ITS | Clinical Summary ---
Author Organization [facility] D Address [address] [place] [address] Care Team Providers Care Openstack Cloud Consulting Architect Name Role Phone Crescencio Victoria MD Unavailable [phone] Hima Silver Primary Care Provider + Allergies Active Allergy Reactions Criticality Noted Date Comments Codeine Rash High Medications ergocalciferol (VITAMIN D) 50,000 unit capsule TAKE 1 CAPSULE BY MOUTH ONCE A WEEK 1 Active metoprolol XL (TOPROL-XL) 25 mg extended release tablet Take 0.5 tablets (12.5 mg total) by mouth daily 30 tablet 5 5 10/12/19 26 Active Additional Information Patient taking differently:12.5 mg oral Daily,PRN, Reported on 06/15/2025 flecainide (TAMBOCOR) 150 mg tablet TAKE 1 TABLET TWICE A DAY 180 tablet 3 5 Active losartan-hydroC HLOROthiazide (HYZAAR) 50-12.5 mg per tablet Take 1 tablet by mouth daily 4 Active Active Problems Problem Noted Date Diagnosed Date Ventricular ectopy 12/11/2023 Resolved Problems Problem Noted Date Diagnosed Date Resolved Date VT (ventricular tachycardia) 12/08/2018 12/11/2023 Overview (12/08/2018): Added automatically from request for surgery [id number] Encounters Date Type Department Care Team Description 06/15/2025 11:00 AM CDT Office Visit [facility] [address] [phone] Varsha Swenson NP Cardiac arrhythmia, unspecified cardiac arrhythmia type (Primary Dx) 06/15/2025 Telephone Ar[facility]hythm[facility] [address] [address] Varsha Swenson NP from Last 3 Months Surgical History Surgery [...] on file Legal Sex Female 1:09 PM ENTERTAINMENT 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 Gender Identity Not on file Sexual Orientation Not on file Last Filed Vital Signs Vital Sign Reading Time Taken Comments Blood Pressure 118/82 06/15/2025 11:28 AM CDT Pulse 83 06/15/2025 11:28 AM CDT Temperature 36.7 C (98.1 F) 11/04/2018 8:52 AM CDT Respiratory Rate 16 10/31/2021 11:18 AM CDT Oxygen Saturation 99% 06/15/2025 11:28 AM CDT Inhaled Oxygen Concentration - - Weight 78.9 kg (174 lb) 06/15/2025 11:28 AM CDT Height 167.6 cm (5' 5.98) 06/15/2025 11:28 AM C DT Body Mass Index 28.1 06/15/2025 11:28 AM CDT Plan of Treatment Health Maintenance Due Date Last Done Comments Cervical Cancer Screening 1972 Colon Cancer Screening-Colonoscopy 1972 Depression Screening 1972 Hepatitis C Screening 1972 Hepatitis B Screening 01/30/1990 Regular Well Visit/Exam 18-64 01/30/1990 Pneumococcal vaccine <65 (1 of 2 - PCV) 01/30/1991 Breast Cancer Screening-Mammogram 10/08/2015 015, 09/09/2013 DTaP/Tdap/Td Vaccine (2 - Td or Tdap) 08/21/202010/2010 Zoster Vaccine (1 of 2) 01/30/2022 Covid-19 Vaccine (4 - season) 2025 06/28/2021, 11/21/2020, 10/31/2020 Influenza Vaccine (#1) 2025 07/06/2020, 2019 Procedures Procedure Name Priority Date/Time Associated Diagnosis Comments ECG 12-LEAD Routine 06/15/2025 11:25 AM CDT Cardiac arrhythmia, unspecified cardiac arrhythmia type DIGITAL MAMMOGRAPHY Routine 10/08/2014 1 2:00 AM ENTERTAINMENT DANCER from Last 3 Months or Most Recently Relevant to Health Maintenance Results * ECG 12 lead (06/15/2025 11:25 AM CDT) Varsha Swenson NP ECG ORDERABLES Final Resu lt * DIGITAL MAMMOGRAPHY (10/08/2014 12:00 AM ENTERTAINMENT DANCER) Anatomical Region Laterality Modality Breast Mammography 10/08/2014 Narrative 10/08/2014 10:19 AM ENTERTAINMENT DANCER [place], [place] LEON CRUZ ANC ENCOUNTER: [id number] BIRTHDATE: 1970 ORDERING PHYSICIAN: Patito Hernandez DO ATTENDING PHYSICIAN: Patito Hernandez DO TECHNOLOGIST: Dayana Marcum EXAM DATE: 10/08/2014 08:22 X-RAY#: [id number] DEPARTMENT OF RADIOLOGY MAMMOGRAPHY REPORT EXAM DESCRIPTION [...] Negative. The above report was dictated at [facility] [place] [facility]. Authenticated by Edwar You MD On 10/08/2014 11:59 MD MAXWELL Morillo:devang Doc #: [id number] Dictation CC: Patito Hernandez DO Procedure Note Provider, MD Michael - 12/21/2016 [place], [place] LEON CRUZ ENCOUNTER: [id number] BIRTHDATE: 1970 ORDERING PHYSICIAN: Patito Hernandez DO ATTENDING PHYSICIAN: Patito Hernandez DO TECHNOLOGIST: Dayana Marcum EXAM DATE: 10/08/2014 08:22 X-RAY#: [id number] DEPARTMENT OF RADIOLOGY MAMMOGRAPHY REPORT EXAM DESCRIPTION [...] Negative. The above report was dictated at [facility] [place] [facility]. Authenticated by Edwar You MD On 10/08/2014 11:59 MD MAXWELL Morillo:devang Doc #: [id number] Dictation CC: Patito Hernandez DO Historical Provider MD DIANA MAMMO PROCEDURES Xochitl l Result from Last 3 Months or Most Recently Relevant to Health Maintenance Insurance [employer] [facility] Advance Directives For more information, please contact: [phone] * Full Code (Latest Code Status on File) Date Activated Date Inactivated Comments 11/01/2018 9:32 PM 11/04/2018 3:28 PM Care Teams Openstack Cloud Consulting Architect Relationship Specialty Start Date End Date Hima Silver PA [facility] [place] [address] PCP - General Internal Medicine 02/11/24 Crescencio Victoria MD Consulting Physician Cardiology 11/04/18
--- OUTSIDE RECORDS SUMMARY | 2025-07-02 07:43 | XMS_ITS | Encounter Summary ---
Author Organization [facility] Address [address] [place] [address] Care Team Providers Care Plasterer Spot Name Role Phone González Clark MD Primary Care Provider [phone] Encounter Details Date Type Department Care Team (Late st Contact Info) Description 05/27/2024 Prep for Procedure [facility] [address] [id number] Lea Cevallos, ACCOUNTING PROFESSOR [facility] [address] [place] [phone] [phone] (Work) Social History Tobacco Use Types Packs/Day Years Used Date Smoking Tobacco: Former Cigarettes Smokeless Tobacco: Never Alcohol Use Standard Drinks/Week Comments Yes 0 (1 standard drink = 0.6 oz pur e alcohol) social Comments No Sex and Gender Information Value Date Recorded Sex Assigned at Female 09/11/2024 2:22 PM STAFF TECHNOLOGIST Legal Sex Female 8:20 PM CDT Gender Identity Not on file Sexual Orientation Not on file documented as of this encounter Plan of Treatment Not on file documented as of this encounter Visit Diagnoses Not on filedocumented in this encounter Care Teams Plasterer Spot Relationship Specialty Start Date End Date González Clark MD [address] [place] [phone] PCP - General 02/04/24 documented as of this encounter
--- OUTSIDE RECORDS SUMMARY | 2025-07-02 07:43 | XMS_ITS | Clinical Summary ---
Author Organization [facility] Address [address] [place] [address] Care Team Providers Care Senior Research Consultant Name Role Phone González Clark MD Primary Care Provider [phone] Allergies Active Allergy Reactions Criticality Noted Date [...] radiculopathy 12/19/2023 Hip injury 07/25/2023 Diabetes mellitus 05/08/2023 Arthritis of first metatarso phalangeal (MTP) joint of right foot 03/12/2023 Multiple joint pain 11/09/2022 Essential hypertension 10/17/2022 Ventricular ectopy 10/14/2022 Acquired hallux rigidus of right foot 04/26/2022 Osteoarthritis of fingers of both hands 04/26/20 22 Pain in both hands 04/26/2022 Macrocytic anemia 04/24/2022 Eczema 04/02/2017 Encounters Date Type Department Care Team Description 05/12/2025 9:20 AM CDT - 05/12/2025 9:40 AM CDT Surgery [facility] [place] [address] [id number] Savannah Maravilla MD BLOCK SACROILIAC JOINT 05/12/2025 8:24 AM CDT - 05/12/2025 9:41 AM CDT Hospital Encounter [facility] [place] [address] [id number] Savannah Maravilla MD Discharge Disposition: Home or Self Care (Routine Discharge) 05/12/2025 Travel 04/12/2025 Travel from Last 3 Months Family History [...] Sex Assigned at Female 09/11/2024 2:22 PM DATABASE DEVELOPMENT PROJECT MANAGER Legal Sex Female 8:20 PM CDT Gender Identity Not on file Sexual Orientation Not on file Last Filed Vital Signs Vital Sign Reading Time Taken Comments Blood Pressure 130/89 05/12/2025 9:30 AM CDT Pulse 62 05/12/2025 9:30 AM CDT Temperature 36.5 C (97.7 F) 05/12/2025 8:34 AM CDT Respiratory Rate 20 05/12/2025 9:30 AM CDT Oxygen Saturation 100% 05/12/2025 9:30 AM CDT Inhaled Oxygen Concentration - - Weight 82.6 kg (182 lb) 05/12/2025 8:34 AM CDT Height 167.6 cm (5' 6) 05/12/2025 8:34 AM CDT Body Mass Index 29.38 05/12/2025 8:34 AM CDT Plan of Treatment Health Maintenance Due Date Last Done Comments Cervical Cancer Screening Pa p Smear (Age 30 to 64) Every 3 Years 1972 Colorectal Cancer Screening Colonoscopy (10 Years) 1972 Kidney Health Evaluation 1972 Hemoglobin A1C 1972 Lipid Panel 1972 Annual Physical 01/30/1975 Diabetes: Retinopathy Eye Exam 01/30/1990 Hepatitis C 01/30/1990 Hepatitis B Vaccines (1 of 3 - 19+ 3-dose series) 01/30/1991 Pneumococcal Vaccine: 50+ Years (1 of 2 - PCV) 01/30/1991 Cervical Cancer Screening Pa p with HPV Testing (Age 30 to 64) Every 5 Years 01/30/2002 Cervical Cancer Screening wi th HPV 01/30/2002 Mammogram Screening 2012 DTaP, Tdap and Td Vaccines ( 2 - Td or Tdap) 08/21/2020 08/21/2010 Zoster Vaccines (1 of 2) 01/30/2022 PHQ-2 (Physician [place]) 08/19/2024 COVID-19 Vaccine (4 - 2024-2 6 season) 2025 06/28/2021, 11/21/2020, 10/31/2020 Influenza Adult (#1) 2025 07/06/2020, 08/20/2019 Hepatitis A Vaccines Aged Out No long er eligible based on patient's age to complete this topic Meningococcal B Vaccine Aged Out No l onger eligible based on patient's age to complete this topic Meningococcal Vaccine Aged Out No gene nida eligible based on patient's age to complete this topic RSV Immunizations Under 20 Months Aged Out No longer eligible b ased on patient's age to complete this topic Procedures Procedure Name Priority Date/Time Associated Diagnosis Comments INJ FOR SACROILIAC JOINT ANESTH 05/12/2025 9:22 AM CDT SI joint arthritis INJECTION,SACROILIAC JOINT 05/12/2025 9:22 AM CDT SI joint arthritis XR PA[facility] C-[facility] Today 05/12/2025 8:49 AM CDT from Last 3 Months Results * XR PAIN [facility] C-ARM (05/12/2025 8:49 AM CDT) Narrative Radiology, Technologist - 05/12/2025 8:49 AM CDT This report does not contain a radiologist's interpretation. Please review associated procedure and/or operative report. us Savannah Maravilla MD GENERAL IMAGING Final Result from Last [address] [place] [id number] Care Teams Senior Research Consultant Relationship Specialty Start Date End Date González Clark MD [address] [place] [phone] PCP - General 02/04/24
--- OUTSIDE RECORDS SUMMARY | 2025-07-02 07:43 | XMS_ITS | Encounter Summary ---
Author Organization [facility] Address [facility] [place] [address] Care Team Providers Care Dielectric Press Operator Name Role Phone González Clark MD Primary Care Provider [phone] Encounter Details Date Type Department Care Team (Late st Contact Info) Description 07/08/2024 mySugrt Message Enc [facility] [place] [address] [id number] Savannah Maravilla MD [address] [facility] [address] [place], [place] [phone] Pain issues returned suddenly on left side; need help. 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
--- OUTSIDE RECORDS SUMMARY | 2025-07-02 07:43 | XMS_ITS | Encounter Summary ---
Author Organization [facility] Address [facility] [place] [address] Care Team Providers Care Geospatial Technologist Name Role Phone González Clark MD Primary Care Provider [phone] Encounter Details Date Type Department Care Team (Late st Contact Info) Description 05/27/2024 Seven Energyt Message Enc [facility] [place] [address] [id number] Savannah Maravilla MD [address] [facility] [address] [place], [place] [phone] Trying desperately to get another appointment with Dr Sanchez Social History Tobacco Use Types Packs/Day Years Used Date Smoking Tobacco: Former Cigarettes Smokeless Tobacco: Never Alcohol Use Standard Drinks/Week Comments Yes 0 (1 standard drink = 0.6 oz pur e alcohol) social Comments No Sex and Gender Information Value Date Recorded Sex Assigned at Female 09/11/2024 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
--- OUTSIDE RECORDS SUMMARY | 2025-07-02 07:43 | XMS_ITS | Data Portability ---
Author Organization [place] [employer], Main Office Address [address] [place] [address] Care Team Providers Care Edi Consultant Name Role Phone GONZÁLEZ CLARK Primary Care Provider Assessment No assessment recorded. Plan of Treatment Reminders Order Date Submit Date Provider Last Modified By Organization Details Last Modified Time Details Appointments Any 15 2024 10:30A M González Clark MD Not available Not available Not available Lab HbA1c (hemoglob in A1c), blood 2023 024 [email or web address] Not available 07/13/2024 09:04:16 Referral physical therapist referral - *Please call pt to schedule* 2022 023 [email or web address] 56 [facility], [address], [place], [address], 08/26/2023 08:47:29 cardiolog ist referral 2022 023 [email or web address] Hema Bundy, [address], [place], [address], 04/10/2023 08:58:17 podiatris t referral 2022 023 [email or web address] Daren BINGHAM, [address], [address], [place], [address], 04/10/2023 08:58:21 Procedures None recorded. Surgeries None recorded. Imaging None recorded. Medication Orders minoxidil 2.5 mg tablet 2024 025 [facility], [address] [place] [address], [id number], 04/01/2025 17:04:42 ergocalci ferol (vitamin D2) 1,250 mcg (50,000 unit) capsule 2024 025 [facility], [address] [place] [address], [address], 04/01/2025 17:04:42 losartan 50 mg-hydroc hlorothia zide 12.5 mg tablet 2024 025 [facility], [address] [place] [address], [address], 04/01/2025 17:07:10 prednison e 20 mg tablet [address] [id number], [address] [place], [place], [id number], 04/01/2025 16:44:31 azithromy robyn 250 mg tablet [address] [id number], [address] [place], [place], [id number], 04/01/2025 16:43:33 benzonata te 200 mg capsule [address] [id number], [address] [place], [place], [id number], 04/01/2025 16:43:39 minoxidil 2.5 mg tablet 2023 024 [facility] [address], [place], [address], 06/10/2024 15:39:05 cyclobenz aprine 10 mg tablet 2022 023 [facility] [address], [address], [place], [address], 06/10/2024 15:19:28 Depo-Medr ol 80 mg/mL suspensio n for injection 2022 023 Not available 04/01/2025 16:43:49 lisinopri l 20 mg tablet 2022 023 [email or web address] [facility] [address], [address], [place], [address], 04/01/2025 17:04:48 Patient TargetsNo targets recorded. Patient Instructions Encounter Date Encounter Id Patient Instructions Last Modified By Organization Details Last Modified Time 08/18/2024 [id number] she is taking ot c sudafed . she will check it at home ,if high , she will call [email or web address] Not available 08/18/2024 09:34:44 Reason for Referral Commercial Loan Specialist Referral for Philomena lebron history of Cardiovascular disease Referring Physician: Mayra Alexander [facility], Encounter Date: 03/12/2023 Vehicle Technician Referral for Arth ritis of first metatarsophalangeal joint of right foot Referring Physician: [facility], Encounter Date: 03/12/2023 Physical Therapist Referral for Injury of hip region *Please call pt to schedule* Referring Physician: Hima Silver [facility], Encounter Date: 07/26/2023 Results Created Date Observation Date Name Description Value Unit Range Abnormal Flag Note LastModifiedBy Organization Detail LastModifiedTime 03/19/2003/19/2023 MAMMO , scree roberto carlos, digit al, bilat eral No observ ation record ed. [email or web address] [facility] [address] [place] [address], [address], 03/19/2023 16:55:07 06/28/20 23 06/28/2023 MRI, hand, w/o contr ast No observ ation record ed. [email or web address] [facility] [address], [place], [address], 07/01/2023 08:22:15 09/09/19 24 09/06/2023 DEXA, axial skele ton No observ ation record ed. [email or web address] [place] [address], [place], [address], 09/12/2023 16:23:39 10/21/19 24 10/21/2023 MRI, lumba r spine , w/o contr ast No observ ation record ed. [email or web address] [facility] [address], [place], [address], 10/22/2023 08:43:32 Result Notes None recorded. Problems Name Problem SNOMED Code Status Onset Date Resolution Date Notes Provider Name and Address Organization Details Recorded Time Pain of joint of wrist Active Not Available [facility] 3 19:15:27 Medial epicondyli tis 95569908 Active Not Available [facility] 3 19:15:27 Eczema 89644900 Active 2016 Not Available [facility] 3 19:15:27 Macrocytic anemia 76022941 Active 2021 Not Available [facility] 3 19:15:27 Abnormal red blood cell volume 661206797 Active 2021 Not Available 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 3 19:15:26 Pain of bilateral hands 1348987805860 9109 Active 2021 Not Available [facility] 3 19:15:26 Acquired right hallux rigidus 0083687903341 00 Active 2021 Not Available [facility] 3 19:15:27 Ventricula r arrhythmia 66894737 Active 2022 González Clark MD [address] [facility] [facility], [facility] [address], [place], [address] , [place] [facility] [employer] [facility] 5 16:55:51 Essential hypertensi on 02691738 Active 2022 González Clark MD [address], [place], [address] , [place] [facility] 5 16:55:51 Pain of multiple joints 85571755 Active 2022 Mayra Alexander MD [address], [place], [address] , [place] [facility] 3 09:18:09 Arthritis of first metatarsop halangeal joint of right foot 6319100541562 9108 Active 2022 Mayra Alexander MD [address], [place], [address] , [place] [facility] 3 14:29:32 Diabetes mellitus 25409527 Active 2022 Carri Vivar MA [facility], [place] [facility] 3 10:27:32 Injury of hip region 275603461 Active 2022 González Clark MD [address], [place], [address] , [facility] 5 16:55:51 Lumbar radiculopa thy 823265212 Active 2023 González Clark MD [address], [place], [address] , [place] [facility] 5 16:55:51 Contact dermatitis 12293588 Active 2023 DANIA Acevedo [address], [place], [address] , [facility] 4 15:57:55 Lateral epicondyli tis 960866071 Active 2023 González Clark MD [address], [place], [address] , [facility] 5 16:55:51 Osteoarthr itis 396775616 Active 2023 González Clark MD [address], [place], [address] , [employer] [facility] [employer] [facility] 5 16:55:51 Menopausal flushing 414877167 Active 2023 DANIA Acevedo [address], [place], [address] , [place] [employer] [facility] 4 15:57:24 Adult health examinatio n Active 2023 DANIA Acevedo [address], [place], [address] , [facility] [employer] [facility] [employer] 4 10:39:33 Bronchitis 51398114 Active 2023 DANIA Acevedo [address], [place], [address] , [employer] [facility] [employer] [facility] [employer] 4 09:17:20 Chronic pain of right foot 5822125930588 9105 Active 2024 González Clark MD [address], [place], [address] , [facility] [employer] [facility] [employer] 5 16:58:43 Polyarthro sarah 05678523 Active 2024 González Clark MD [address], [place], [address] , [facility] [employer] [facility] 5 16:59:02 Loss of hair 534968774 Active 2024 González Clark MD [address], [place], [address] , [facility] [employer] [facility] [employer] 5 17:01:08 Vitamin D deficiency 43997939 Active 2024 González Clark MD [address], [place], [address] , [facility] [employer] [facility] 5 17:03:08 History of cardiac arrhythmia 4491522138764 04 Active 2024 González Clark MD [address], [place], [address] , [facility] [employer] [facility] 5 17:04:24 Benign hypertensi on 41296005 Active 2024 González Clark MD [address], [place], [address] , [facility] [employer] [facility] 5 17:06:29 Chronic low back pain 517877881 Active 2024 González Clark MD [address], [place], [address] , [facility] [employer] [facility] 5 17:23:24 Peripheral neuropathi c pain 331828100 Active 2024 González Clark MD [address], [place], [address] , [facility] [employer] [facility] 17:23:38 Overweight 386952721 Active 2024 González Clark MD [address], [place], [address] , [facility] [employer] [facility] [employer] [facility] 17:25:00 Problem Notes None recorded. Procedures Surgical History Date Name Laterality Status Provider Name and Address Organization Details Recorded Time 09/06/19 24 bone density scan completed Lucy Eldridge RN [facility] [employer] [facility] 09/12/2023 16:23:31 09/11/19 22 colonoscopy completed Not Available [facility] 10/18/19 19:14:28 Knee completed Not Available [facility] 08/2022 19:14:28 section completed Not Available [facility] 10/17/2022 19:14:28 oophorectomy completed Not Available [facility] 10/17/2022 19:14:28 Imaging Results None recorded. Procedure Notes None recorded. Medical Equipment None Reported. Allergies Allergen ID Allergen Name Allergen Category Reaction Reaction Severity Criticality Documentation Date Start Date Code Code System Note Provider Name and Address Organization Details Recorded Time 43136 codeine medicatio n rash Not available Not available 10/17/20222023 2670 [employer] González Clark MD [address], [place], [address], [place] [facility] 16:55:38 Medications Name Sig Start Date Stop Date Status Note LastModified by Organization Details LastModified Time nifedipine ER 30 mg tablet,exte nded release 24 hr 04/01 completed Not Available Not Available Not Available celecoxib 200 mg capsule TAKE 1 CAPSULE BY MOUTH TWICE DAILY NEEDED FOR JOINT PAIN active Not Available Not Available No t Available cyclobenzap rine 10 mg tablet TAKE 1 TABLET BY [...] active Not Available Not Available Not Available triamcinolo ne acetonide 0.5 % topical cream 07/09 completed Not Available Not Available Not Available azithromyci n 250 mg tablet Take 2 TABLET EVERY DAY by oral route for 1 day. Than 1 tablet for 4 days 04/01 completed Not Available Not Available Not Available ibuprofen 800 mg tablet TAKE 1 TABLET BY MOUTH THREE TIMES DAILY NEEDED FOR 30 DAYS 04/01 completed Not Available Not Available Not Available benzonatate 200 mg capsule TAKE 1 CAPSULE BY MOUTH THREE TIMES DAILY NEEDED 04/01 completed Not Available Not Available Not Available meloxicam 15 mg tablet 04/01 completed Not Available Not Available Not Available lisinopril 20 mg tablet Take 1 tablet every day by oral route. 04/01 completed Not Available Not Available Not Available prednisone 20 mg tablet Take 2 tabs PO twice daily for 2 days; 1 tab PO twice daily for 5 days; 1/2 tab PO twice daily for 2 days; 1/2 tab PO once for 1 day. TAKE 2ND DOSE EVERYDAY AT NOON-10 DAY COURSE 04/01 completed Not Available Not Available Not Available Prometrium 100 mg capsule TAKE 1 CAPSULE BY MOUTH DAILY 04/01 completed Not Available Not Available Not Available clobetasol 0.05 % topical cream 04/02 completed Not Available Not Available Not Available ciprofloxac in 500 mg tablet TAKE 1 TABLET BY MOUTH EVERY 12 HOURS FOR 10 DAYS 04/01 completed Not Available Not Available Not Available minoxidil 2.5 mg tablet Take 1 tablet every day by oral route as directed for 90 days. 2024 active Not Available Not Available Not [employer] triamcinolo ne acetonide 0.1 % topical cream APPLY A THIN LAYER TO THE AFFECTED AREA(S) BY TOPICAL ROUTE 2 TIMES PER DAY active Not Available Not Available No t Available ondansetron 8 mg disintegrat ing tablet 04/02 completed Not Available Not Available Not Available Depo-Medrol 80 mg/mL suspension for injection Take 1 mL by injection route. 04/01 completed Not Available Not Available Not Available ketorolac 0.5 % eye drops INSTILL 1 [...] Available Not Available Not Available losartan 100 mg-hydrochl orothiazide 25 mg tablet Take 1 tablet every day by oral route for 30 days. 10/29 completed Not Available Not Available Not Available oxycodone-a cetaminophe n 5 mg-325 mg tablet TAKE 1 TABLET BY MOUTH EVERY 4 TO 6 HOURS NEEDED FOR PAIN active Not Available Not Available No t Available estradiol 1 mg tablet TAKE 1 TABLET BY MOUTH DAILY FOR 10 DAYS 04/01 completed Not Available Not Available Not Available Kenalog 10 mg/mL suspension for injection In office injection administe red by the provider 10/[address] [facility]: 0003- 0494- 20 Not Available Not Available Not Available benzonatate 100 mg capsule Take 1 capsule 3 times a day by oral route as needed. 07/09 completed Not Available Not Available Not Available rizatriptan 10 mg disintegrat ing tablet 1 at onset of headache and may repeat in 2 hours as needed 11/10 completed Not Available Not Available Not Available oseltamivir 75 mg capsule 04/02 completed Not Available Not Available Not Available misoprostol 200 mcg tablet 07/09 completed Not Available Not Available Not Available flecainide 50 mg tablet 04/11 completed Not Available Not Available Not Available flecainide 100 mg tablet 06/15 completed Not Available Not Available Not Available progesteron e micronized 200 mg capsule 04/01 completed Not Available Not Available Not Available hydrochloro thiazide 12.5 mg capsule Take 1 capsule every day by oral route. 09/17 completed Not Available Not Available Not Available butalbital- aspirin-caf feine 50 mg-325 mg-40 mg capsule Take 1 capsule every 4 hours by oral route as needed. 07/06 completed Not Available Not Available Not Available gabapentin 300 mg capsule TAKE 1 CAPSULE BY MOUTH ONCE DAILY AT BEDTIME FOR 3 DAYS THEN 1 TWICE DAILY FOR 3 DAYS THEN 1 THREE TIMES DAILY 06/10 completed Not Available Not Available Not Available omeprazole 20 mg capsule,del ayed release TAKE 1 CAPSULE DAILY active Not Available Not Available No t Available lisinopril 20 mg-hydrochl orothiazide 25 mg tablet Take 1 tablet every day by oral route. 04/14 completed Not Available Not Available Not Available esterified estrogens-m ethyltestos terone 1.25 mg-2.5 mg tablet TAKE 1 TABLET BY MOUTH EVERY DAY active Not Available Not Available No t Available ergocalcife rol (vitamin D2) 1,250 mcg (50,000 unit) capsule Take 1 capsule by mouth once a week 2024 active Not Available Not Available Not Avai lable scopolamine 1 mg over 3 days transdermal patch Apply 1 patch every 72 hours by transderm al route. 04/11 completed Not Available Not Available Not Available methylpredn isolone 4 mg tablets in a dose pack TAKE BY MOUTH DIRECTED ON INSIDE OF PACKAGE 04/11 completed Not Available Not Available Not Available losartan 50 mg-hydrochl orothiazide 12.5 mg tablet Take 1 tablet every day by oral route in the morning for 90 days, for high HTN. 2024 active Not Available Not Available Not Avai lable rizatriptan 5 mg disintegrat ing tablet 01/28 completed Not Available Not Available Not Available metoclopram alice 10 mg tablet TAKE 1 TABLET BY MOUTH A ONE TIME DOSE FOR NAUSEA AND FOR VOMITING 30 MINUTES PRIOR TO PROCEDURE 04/01 completed Not Available Not Available Not Available amoxicillin 875 mg-potassiu m clavulanate 125 mg tablet Take 1 tablet every 12 hours by oral route for 10 days. active Not Available Not Available No t Available neomycin-po lymyxin-hyd rocort 3.5 mg-10,000 unit/mL-1 % ear drops,susp INSTILL 4 DROPS INTO AFFECTED EAR(S) BY OTIC ROUTE 3 TIMES PER DAY active Not Available Not Available No t Available Benadryl Allergy 25 mg tablet 1 to 2 tabs po at be bedtime 04/01 completed Not Available Not Available Not Available moxifloxaci n 0.5 % eye drops INSTILL 1 DROP IN LEFT EYE FOUR TIMES DAILY FOR 5 DAYS 04/11 completed Not Available Not Available Not Available metoprolol tartrate 25 mg tablet TAKE 1/2 (ONE-HALF ) TABLET BY MOUTH TWICE DAILY NEEDED FOR PALPITATI ONS active Not Available Not Available No t Available duloxetine 30 mg capsule,del ayed release 06/10 completed Not Available Not Available Not Available pregabalin 50 mg capsule TAKE 1 CAPSULE BY MOUTH EVERY NIGHT AT BEDTIME FOR 1 WEEK THEN TAKE 1 CAPSULE BY MOUTH TWICE DAILY active Not Available Not Available No t Available lidocaine (PF) 10 mg/mL (1 %) injection solution In office injection administe red by the provider 07/[address] [facility]: 0409- 4276- 17 Not Available Not Available Not Available tretinoin 0.05 % topical gel USE DIRECTED 04/11 completed Not Available Not Available Not Available ropivacaine (PF) 5 mg/mL (0.5 %) injection solution Take 10 mg by injection route. 10/12 completed Not Available Not Available Not Available Dexonto 0.4 % iontophoret ic transdermal solution Apply 30 mL as needed by transderm al route. 04/11 completed Not Available Not Available Not Available Flucelvax Quad 60 mcg (15 mcg x 4)/0.5 mL intramuscul ar susp active Not Available Not Available Not Available Slynd 4 mg (28) tablet 07/06 completed Not Available Not Available Not Available Nurtec ODT 75 mg disintegrat ing tablet active Not Available Not Available N ot Available Vitals Date Recorded Body height Body mass index (BMI) Body weight Body temperature Heart rate Oxygen saturation Oxygen saturation in Arterial blood by Pulse oximetry Systolic And Diastolic Provider Name and Address Organization Details Last Updated DateTime 3 167.64 cm 27.3 kg/m2 55358.1 1 g 98.1 [degF] 66 /min 98 % 98 % 122/80 mm[Hg] XANDER Luis [facility] [employer] [facility] 3 14:17:19 Date Recorded Body height Body mass index (BMI) Body weight Body temperature Oxygen saturation Oxygen saturation in Arterial blood by Pulse oximetry Heart rate Systolic And Diastolic Provider Name and Address Organization Details Last Updated DateTime 5 167.64 cm 29.5 kg/m2 71975.7 5 g 98 [degF] 96 % 96 % 98 /min 130/84 mm[Hg] Mahi Jane RN [facility] [employer] [facility] 5 16:45:11 Date Recorded Body height Body mass index (BMI) Body weight Body temperature Heart rate Oxygen saturation Oxygen saturation in Arterial blood by Pulse oximetry Systolic And Diastolic Provider Name and Address Organization Details Last Updated DateTime 4 167.64 cm 27.4 kg/m2 65248.7 g 97.9 [degF] 52 /min 99 % 99 % 120/90 mm[Hg] Lexie Hay RN [facility] [employer] [facility] 4 15:23:29 Date Recorded Body height Body mass index (BMI) Body weight Body temperature Heart rate Respiratory rate Oxygen saturation Oxygen saturation in Arterial blood by Pulse oximetry Systolic And Diastolic Provider Name and Address Organization Details Last Updated DateTime 3 167.64 cm 27 kg/m2 69449.9 3 g 97.5 [degF] 68 /min 16 /min 98 % 98 % 114/78 mm[Hg] Veronica Fuller RN [facility] [employer] [facility] 3 12:42:37 Date Recorded Body height Body mass index (BMI) Body weight Body temperature Heart rate Oxygen saturation Oxygen saturation in Arterial blood by Pulse oximetry Systolic And Diastolic Provider Name and Address Organization Details Last Updated DateTime 4 167.64 cm 27.9 kg/m2 89686.4 8 g 98 [degF] 73 /min 98 % 98 % 142/92 mm[Hg] Lexie Hay RN [facility] [employer] [facility] 4 09:09:03 Social History Question Answer Notes LastModified by [employer] Details LastModified Time Tobacco Smoking Status Former Smoker González Clark MD [address] [place] [address], [facility] [address], [place], [address], [facility] 04/01/2025 16:56:54 What Is Your Level Of Caffeine Consumption? Moderate 2 Shots Of Espresso In AM 2 To 3 Glasses Of Tea Per Day [email or web address] Information not available 04/01/2025 What Is Your Current Pack Years? 30ormorepack years [email or web address] Information not available 04/01/2025 At What Age Did You Start Smoking Tobacco? 18 [email or web address] Information not available 04/01/2025 How Much Tobacco Do You Smoke? 1 PPW [email or web address] Information not available 04/01/2025 How Many Years Have You Smoked Tobacco? 30 Information not available 04/01/2025 Sex: Unknown Functional Status Question Answer Note LastModified by [employer] Details LastModified Time Do you use any illicit or recreational drugs? No Information not available 04/01/2025 Do you or have you ever used any other forms of tobacco or nicotine? No [email or web address] Information not available 04/01/2025 What is your level of alcohol consumption? Occasional [id number] Information not available 10/17/2022 Mental Status None recorded. Family History Relationship Description Onset Age of this Age Resolved Age Notes LastModified by Organization Details LastModified Time Father Essential hypertension [email or web address] Not available 16:47:00 Sister Essential hypertension 20 [email or web address] Not available 16:47:00 Sister Malignant neoplasm of breast 60 Half-S ister [email or web address] Not available 04/01/2025 16:50:20 Maternal Grandfather Myocardial infarction 76 76 [email or web address] Not available 03/19 16:47:42 Paternal Grandmother Leukemia 70 70 [email or web address] Not available 16:48:24 Maternal Uncle Carcinoma of prostate 70 75 anothe r Uncle had prosta te cancer and was in remiss ion [email or web address] Not available 04/01/2025 16:49:49 Mother Raynaud's disease 40 [email or web address] Not available 04/01 16:50:58 Brother Kidney disease 20 40 Half brothe r on Dad's side [email or web address] Not available 04/01/2025 16:52:01 Medical History Condition Response HEART ARRHYTHMIA Y Gynecological HistoryNo gynecological history recorded. Obstetrics History GPAL:G 0 P 0 0 0 0 Immunizations Vaccine Type Date Status Note Provider Nam e and Address Organization Details Recorded Time Influenza, split virus, quadrivalent, PF 0 completed Not Available [employer] 10/17/2022 19:16:26 Influenza, MDCK, quadrivalent, preservative 0 completed González Clark MD [address], [place], [address], [facility] [employer] [facility] 04/01/2025 16:56:01 COVID-19, mRNA, LNP-S, PF, 30 mcg/0.3 mL dose 1 completed González Clark MD [address], [place], [address], [facility] [employer] [facility] [employer] [facility] 04/01/2025 16:56:01 COVID-19, mRNA, LNP-S, PF, 30 mcg/0.3 mL dose 1 completed González Clark MD [address], [place], [address], [facility] [employer] [facility] [employer] [facility] 04/01/2025 16:56:01 COVID-19, mRNA, LNP-S, PF, 30 mcg/0.3 mL dose 1 completed González Clark MD [address], [place], [address], [facility] [employer] [facility] 04/01/2025 16:56:01 Past Encounters Encounter ID Performer Location Encounter Start Date Encounter Closed Date Diagnosis/Indication Diagnosis SNOMED-CT Code Diagnosis ICD10 Code Diagnosis IMO Codes Diagnosis Note [id number] Mayra Alexander MD [facility] Rosa singh [address] [facility] [place] [address] 04/06/2021 00:00:00 04/07/2021 06:03:57 [id number] Mayra Alexander MD [facility] Rosa singh [address] [place] [address] [place] [address] 11/15/2021 00:00:00 11/15/2021 19:10:30 [id number] Mayra Alexander MD [facility] Sincerevi roele [address] [place] [address] [place] [address] 04/11/2022 00:00:00 04/11/2022 22:38:01 [id number] Dejan Silver MD [facility] [place] [address] [place] [address] 04/26/2022 00:00:00 04/26/2022 16:38:27 [id number] Dejan Silver MD [facility] [place] [address] [place] [address] 08/09/2022 00:00:00 08/09/2022 10:53:16 [id number] Mayra Alexander MD [facility] Sincerevi lle [address] [place] [address] [place] [address] 10/12/2022 00:00:00 10/12/2022 13:58:20 [id number] Mayra Alexander MD [facility] Rosa sevillae [address] [place] [address] [place] [address] 11/09/2022 09:00:42 11/09/2022 09:22:07 Essential hypertension 07710269 I10 Continue lisinopril F/u in 3 months. Pain of mu ltiple joints 62781889 M25.50 F/u with rheumatolo gist Bite of bed bug 17173274 0 W57.XXXA Use benadryl and HC cream [id number] Mayra Alexander MD [facility] Rosa singh [address] [place] [address] [place] [address] 03/12/2023 14:11:17 03/12/2023 14:44:20 Family history of Cardiovascular disease 068329459 Z82.49 Arthritis of first metatarsophalangeal joint of right foot 4791935654 3635137 M13.871 Essential hypertension 37868046 I10 Continue lisinopril F/u in 3 months. [id number] Mayra Alexander MD [address] [place] [address] 07/26/2023 12:32:26 08/08/2023 09:58:04 Injury of hip region 482652286 S79.911A [id number] González Clark MD [facility] [place] [address] [facility] [place] [place] [address] 06/10/2024 14:54:21 06/10/2024 15:50:44 Essential hypertension 61056880 I10 [address] [facility] th examination 715141224 Z00.00 Bilateral osteoarthritis of finger of hands 2200574027 10309 M19.041 M19.042 Diabetes mellitus 018317 09 E11.9 Pain of mu ltiple joints 68605950 M25.50 Osteoarthritis 485446379 M19.90 [id number] González Clark MD [address] [address] 08/18/2024 08:56:40 08/18/2024 09:25:48 Bronchitis 79192750 J40 Essential hypertension 87832084 I10 [id number] González Clark MD [address] [address] 04/01/2025 16:36:17 04/01/2025 17:26:43 Chronic pain of right foot 2792744780 1908033 M79.674 G89.29 [id number] Cont f/u with Vehicle Technician as per schedule. Polyarthropathy 33677746 M13.0 1330 Cont f/u with Rheumat as per schedule. Loss of hair 511460504 L 65.9 24405 Chronic Vitamin D deficiency 347 89711 E55.9 30010 History of cardiac arrhythmia 1602047151 10047 Z86.79 788853 Cont f/u with EP as per schedule. Benign hypertension 1072 5009 I10 240343 Ex-cigarette smoker 2810 30951 Z87.891 673211 Chronic low back pain 27 2824993 M54.41 M54.42 G89.29 22230032 Cont f/u with Pain clinic as per schedule. Peripheral neuropathic pain 051782530 M79.2 29056722 Overweight 162085314 E66 .3 37713 Health Concerns Section Related Observation LastModified by Organization Detai ls LastModified Time None Recorded Concern Status LastModified by Organization Details LastModified Time None Recorded Advance Directives Directive None Recorded Payers Insurance Date Sequence Insurance Name Policy Number Policy Martini Covered Member ID Martini Member ID Guarantor Name 04/05/2025 1 EAST - [employer] - PRIME () Chad Edwardst [id number] Analy Cruz 04/05/2025 1 WEST - [employer] - PRIME () Analy Elecht [id number] Analy Cruz Notes Date Note Type Note Provider Name and Address Organization Details Recorded Time 3 text/html Here today needing referrals. Has had problem with tartar build up. Started having gingivitis. Had a saliva test and showed several bacteria. Was told to see kaiawhina kura kaupapa maori sees ssn/ssbn assistant navigator Wants to see kaiawhina kura kaupapa maori Dr. Bundy Wants a carotid doppler.Has osteoarthritis has right MTP. Wants to see senior office support assistant sosa.Is on lisinopril and wants a paper script. Can get it at Kathya Alexander MD [address] [facility], [facility] [address], [place], [address], [employer] 03/12/2023 20:17:19 3 text/html ROS as noted in the HPI right hip pain , wakes her . DANIA Acevedo [address] [facility], [facility] [address], [place], [address], [employer] 08/10/2023 16:49:32 4 text/html ROS as noted in the HPI does have a tickle cough . DANIA Acevedo [address], [place], [address], [employer] 07/04/2024 10:43:27 4 text/html ROS as noted in the HPI chest cold since Jul 31 . ,,no fever . DANIA Acevedo [address], [place], [address], [employer] 08/24/2024 16:19:34 5 text/html Filippo's pt.Med refill.Pt is doing overall well. Denies any problem with meds. Besides her chronic joints and back pain, denies any other concern. Pt is f/u with Vehicle Technician for her chronic Lt foot pain and she will be going for surgery with them next week. Pt has all pre-op work up done with them and I don't need to do anything for it. Pt wants to continue her Minoxidil 2.5mg for her chronic hair loss and thinning. Pt is f/u with Rheumat, Pain clinic and Ortho for her chronic multiple joints and back pain and she had few surgeries in the past for it. Pt is f/u with EP and Cardio for her arrhythmias and is on meds by them. Pt is f/u with her Gyne for HRT and is on meds by them. González Clark MD [address], [place], [address], [employer] 04/01/2025 17:28:06 OBGyn Episode No OBEpisode recorded.
== END 2025-07-02 07:41 | disposition home or self-care (01) ==
PROVIDERS: PCP Family Medicine
DX: R93.1 Abnormal findings on diagnostic imaging of heart and coronary circulation (principal); I49.9 Cardiac arrhythmia, unspecified
CPT/HCPCS: 93306